=== PATIENT | female | born 1950 | race Caucasian/White ===

== ENCOUNTER 2018-10-03 04:19 | Inpatient (IN) | payer MEDICARE ==
[2018-10-03 04:51] VITALS: BP 154/84
[2018-10-03 06:31] LABS: CHOLESTEROL 205 mg/dL (<200); HDL -HIGH DENSITY LIPOPROTEIN 38 mg/dL (23-92); TRIGLYCERIDES 70 mg/dL (<150)
--- NOTE | 2018-10-04 02:54 | Psychiatric Evaluation ---
DATE OF SERVICE: 10/03/2018 PSYCHIATRIC INITIAL EVALUATION AND MENTAL STATUS EXAM. AGE: 68. SEX: Female. PHYSICIAN: Dr. Grubbs or Dr. Medrano. TYPE OF REPORT: Psychiatric consult. REASON FOR THE CONSULT: Agitation. HISTORY OF PRESENT ILLNESS: The patient is a 68-year-old female who was transferred from [facility] in [place] because of agitation. The patient has history of bipolar disorder as well as Parkinson disease and she was placed on 5150 hold for grave disability. The patient has been actively hallucinating and seeing "big giants." The patient also has not been able to take care of her basic needs and she has not been taking her medications for her both Parkinson's and for her schizoaffective disorder to the point that she has not been able to function. I tried to interview the patient but the patient kept staring at me and at the room aimlessly and appeared to be confused and she kept tapping by her fingers into the Yina chair. The patient also seems to be confused and restless. She also has hand coarse tremors. The patient also was agitated, but no aggressive behavior. PAST PSYCHIATRIC HISTORY: The patient has history of schizoaffective disorder. PAST MEDICAL HISTORY: The patient has history of Parkinson's disease. SOCIAL HISTORY: The patient could not give much information about her social history, but according to the chart, no known alcohol or street drug use. ALLERGIES: No known allergies. MENTAL STATUS EXAMINATION: The patient appears older than her stated age. Anxious. Irritable mood. Preoccupied and kept staring at me and at the room aimlessly. The patient did not answer questions regarding hallucinations or delusions or regarding suicide or homicide. The patient seems to be preoccupied. The patient reported earlier seeing big giants but was not able to elaborate more on that. The patient is alert, but seems to be disoriented to the place, person, time, and situation. Unable to assess her memory at this time because the patient is nonverbal. Also unable to assess her intelligence. Poor concentration and attention span and she was not able to follow any of my instructions. ASSESSMENT: PRIMARY DIAGNOSIS: Schizoaffective disorder, bipolar type, severe, with psychotic features. MEDICAL DIAGNOSIS: Parkinson's disease. TREATMENT PLAN: We will change Seroquel to be given in a dose of 50 mg twice a day instead of 100 mg once a day. Also, we will add Klonopin 0.5 mg twice a day. Also, we will continue to work on her agitation and her irritability and also will try to get more information when more able to talk and when we get more history from other resources. ESTIMATED LENGTH OF STAY: 5-7 days. PATIENT'S STRENGTHS AND WEAKNESSES: The patient's strength is not clear at this time. Weaknesses is her noncompliance with taking her medications and it seems that she has lack of support system. AFTER-DISCHARGE PLANS: The patient might need placement in a senior care if she is not ready in one in [place]. Outpatient treatment and followup will continue as an outpatient. CRITERIA FOR DISCHARGE: Stabilizing psychotropic medications and also has discharge plans. [facility]# [id number]
--- NOTE | 2018-10-05 10:17 | Progress Notes ---
DATE: 10/04/2018 SUBJECTIVE: A 68-year-old female transferred from [facility] in agitation, bipolar, actively hallucinating. On [id number], the patient is not talking to me, whatsoever, just mumbling saying not intelligible things, starring aimlessly, very confused, disoriented. Medications were reviewed. Currently on Klonopin, Ativan, and mirtazapine. The patient is not really a good historian, needing prompting, redirections, selectively mute, delusional, stating that "giants are chasing me" and that is one of the reasons she came to the hospital. PLAN: We will continue to monitor. Continue dosing of Seroquel. JOB# [id number]
--- NOTE | 2018-10-05 14:15 | Diagnostic Imaging Report ---
CHEST X-RAY: AP view INDICATION: Fever COMPARISON: None FINDINGS: There is mild prominence right paratracheal soft tissue density. There is elevation of the right hemidiaphragm. There is no focal consolidation or pleural effusions The heart is normal in size. The aorta is mildly tortuous. Degenerative changes of the spine are noted. There is evidence of calcific tendinitis of the right shoulder. IMPRESSION: No focal consolidation identified Mild prominence right paratracheal soft tissue density which may be due to patient positioning and vascular structures. Lymphadenopathy is less likely. Correlation with old exams would be helpful. If necessary follow-up CT would provide additional detail and assessment. Tortuous aorta.
[2018-10-05 15:10] LABS: HEMATOCRIT 46.8 % (41.0-60); HEMOGLOBIN 15.8 gm/dL (12-16); MEAN CELL VOLUME 93.5 fl (81-100); MEAN CORPUSCULAR HEMOGLOBIN 31.5 pg (27.0-31.0); MEAN CORPUSCULAR HGB CONC 33.7 pg (28.0-36.0); PLATELET COUNT 262 Th/cmm (150-400); RED BLOOD COUNT 5.01 Mil/cmm (3.80-5.20); RED CELL DISTRIBUTION WIDTH 13.2 % (11.5-20.0); WHITE BLOOD COUNT 14.4 Th/cmm (4.8-10.8)
[2018-10-05 15:31] LABS: ALB/GLOB RATIO 1.3 (1.0-1.8); ALBUMIN 4.5 gm/dL (3.7-5.3); ALKALINE PHOSPHATASE 116 U/L (34-104); ANION GAP 15.4 (7.0-16.0); BILIRUBIN,TOTAL 1.4 mg/dL (0.3-1.0); BUN - UREA NITROGEN 53 mg/dL (7-25); CALCIUM SERUM 12.3 mg/dL (8.6-10.3); CARBON DIOXIDE 23.3 mEq/L (21.0-31.0); CHLORIDE 116 mEq/L (98-107); GFR AFRICAN-AMERICAN > 60.0 ml/min (>90); GFR NON AFRICAN-AMERICAN 58.4 ml/min; GLUCOSE 129 mg/dL (70-105); POTASSIUM SERUM 3.7 mEq/L (3.5-5.1); SGOT 40 U/L (13-39); SGPT/ALT < 3 U/L (7-52); SODIUM SERUM 151 mEq/L (136-145); TOTAL PROTEIN,SERUM 7.9 gm/dL (6.0-8.3)
[2018-10-05 16:15] LABS: BAND NEUTROPHILE 0 % (0-10); BASOPHIL 0 % (0-3); EOSINOPHIL 0 % (0-5); LYMPHOCYTE 6 % (20-50); MONOCYTE 6 % (2-10); NEUTROPHILS 88 % (40-80)
--- NOTE | 2018-10-05 17:01 | History & Physical ---
ADMIT DATE: 10/03/2018 INTERNAL MEDICINE HISTORY AND PHYSICAL The patient is ____. REASON FOR CONSULTATION: ____ medical management and clearance. HISTORY OF PRESENT ILLNESS: This is an unfortunate 68-year-old female with history of Parkinson's, hypertension, hyperparathyroidism, ____ history of endometrial cancer, which could be distant; admitted under the service of Dr. Grubbs. The patient was cleared medically from the facility in [place], [place]. The patient is awake, stairs blankly, not verbal, not interactive. PAST MEDICAL HISTORY: As mentioned in the history of present illness. PAST SURGICAL HISTORY: Unknown. ALLERGIES: ARCHIE INHIBITOR, HALDOL, ____ DEPAKOTE. MEDICATIONS: The patient is on amantadine, Sinemet, clonazepam and Seroquel. FAMILY HISTORY: Noncontributory. SOCIAL HISTORY: Apparently from [facility]. REVIEW OF SYSTEMS: This is limited secondary to the patient's current mental state. We will try to obtain more detailed review of system later date by talking to family members, Brit Castillo, who is her sister at [phone]. We will also try to get information from the nursing staff at ____ facility in [place] at [phone]. PHYSICAL EXAMINATION: VITAL SIGNS: Blood pressure 129/60, respirations 20, pulse 99, temperature 98.6. GENERAL: Elderly female, appears her stated age, appears chronically ill. HEENT: Bilateral temporal wasting. NECK: Supple. LUNGS: Equal breath sounds, few rhonchi. HEART: Regular rate and rhythm with systolic ejection murmur. ABDOMEN: Soft, globular, nontender. EXTREMITIES: Positive excoriation ____ extremity. NEUROLOGIC: Positive for resting tremor. LABORATORY DATA: ____. The rest of the labs are pending. ASSESSMENT AND PLAN: 1. Parkinson's disorder. 2. Hypertension. 3. Hyperparathyroidism. 4. History of endometrial cancer. 5. Hypercholesterolemia. PLAN: Poor p.o. intake. We will add Ensure. We will do calorie count. We will check UA and C and S and chest x-ray if not done. We are looking for results of the lab test done from outside hospital. We will continue monitor the patient closely. JOB# [id number]
[2018-10-06 06:01] LABS: URINE SOURCE CATH
[2018-10-06 06:08] LABS: URINE BILIRUBIN SMALL (NEGATIVE); URINE BLOOD LARGE (NEGATIVE); URINE GLUCOSE (UA) NEGATIVE (NEGATIVE); URINE KETONE TRACE mg/dL (NEGATIVE); URINE LEUKOCYTE ESTERASE TRACE (NEGATIVE); URINE MICROSCOPIC INDICATED? YES; URINE NITRATE NEGATIVE (NEGATIVE); URINE PROTEIN 100 mg/dL (NEGATIVE); URINE UROBILINOGEN 0.2 E.U./dL (0.2 - 1.0)
[2018-10-06 06:11] LABS: URINE CLARITY HAZY (CLEAR); URINE COLOR BROWN
[2018-10-06 06:19] LABS: URINE RBC 25-50 /hpf (0-5)
[2018-10-06 06:20] LABS: URINE BACTERIA FEW /hpf (NONE SEEN); URINE EPITHELIAL CELLS OCCASIONAL /lpf (FEW)
--- NOTE | 2018-10-06 08:50 | Progress Notes ---
DATE: 10/05/2018 SUBJECTIVE: The patient slept about 7 hours, started shaking when I see her, preoccupied, mumbling, cannot understand really anything that she is saying, very low volume of speech. Currently on low dose Remeron, low dose Seroquel, also Sinemet, on low dose Klonopin. The patient remains somewhat impulsive, unpredictable, repetitive, ongoing concerns that she may not be able to be cared for the level of care, concerns of delusions. She has been making statements that "giants" were chasing her and was psychotic appearing. PLAN: We will continue to monitor. Given the extent and severity of her ongoing symptoms, she is not safe for discharge. [facility]# [id number]
--- NOTE | 2018-10-06 12:00 | Diagnostic Imaging Report ---
Ultrasound bladder History: Hematuria Comparison: None Findings: Underdistended urinary bladder is noted. No definite urinary bladder wall thickening based on the limited images provided. No other focal abnormal identified. IMPRESSION: Underdistended urinary bladder limiting its evaluation. No focal abnormalities identified.
--- NOTE | 2018-10-06 14:15 | Internal Medicine Prog Note ---
Internal Medicine Subjective - Subjective Patient seen and examined:: with staff, chart reviewed Patient is:: awake, non-verbal, non-interactive Per staff patient has:: no adverse event, no episodes of fall, poor oral intake , tolerating meds Internal Medicine Objective - Results Result Diagrams: 10/05/18 15:00 10/05/18 15:00 Recent Labs: Laboratory Last Values WBC 14.4 Th/cmm (4.8-10.8) H 10/05/18 15:00 RBC 5.01 Mil/cmm (3.80-5.20) 10/05/18 15:00 Hgb 15.8 gm/dL (12-16) 10/05/18 15:00 Hct 46.8 % (41.0-60) 10/05/18 15:00 MCV 93.5 fl (81-100) 10/05/18 15:00 MCH 31.5 pg (27.0-31.0) H 10/05/18 15:00 MCHC Differential 33.7 pg (28.0-36.0) 10/05/18 15:00 RDW 13.2 % (11.5-20.0) 10/05/18 15:00 Plt Count 262 Th/cmm (150-400) 10/05/18 15:00 MPV 8.2 fl 10/05/18 15:00 Add Manual Diff YES 10/05/18 15:00 Band Neutrophils % 0 % (0-10) 10/05/18 15:00 Neutrophils (Manual) 88 % (40-80) H 10/05/18 15:00 Lymphocytes 6 % (20-50) L 10/05/18 15:00 Monocytes 6 % (2-10) 10/05/18 15:00 Eosinophils 0 % (0-5) 10/05/18 15:00 Basophils 0 % (0-3) 10/05/18 15:00 Sodium 151 mEq/L (136-145) H 10/05/18 15:00 Potassium 3.7 mEq/L (3.5-5.1) 10/05/18 15:00 Chloride 116 mEq/L (98-107) H 10/05/18 15:00 Carbon Dioxide 23.3 mEq/L (21.0-31.0) 10/05/18 15:00 Anion Gap 15.4 (7.0-16.0) 10/05/18 15:00 BUN 53 mg/dL (7-25) H 10/05/18 15:00 Creatinine 1.0 mg/dL (0.6-1.2) 10/05/18 15:00 Est GFR ( Amer) > 60.0 ml/min (>90) 10/05/18 15:00 Est GFR (Non-Af Amer) 58.4 ml/min 10/05/18 15:00 BUN/Creatinine Ratio 53.0 10/05/18 15:00 Glucose 129 mg/dL (70-105) H 10/05/18 15:00 Calcium 12.3 mg/dL (8.6-10.3) H 10/05/18 15:00 Total Bilirubin 1.4 mg/dL (0.3-1.0) H 10/05/18 15:00 AST 40 U/L (13-39) H 10/05/18 15:00 ALT < 3 U/L (7-52) L 10/05/18 15:00 Alkaline Phosphatase 116 U/L (34-104) H 10/05/18 15:00 Total Protein 7.9 gm/dL (6.0-8.3) 10/05/18 15:00 Albumin 4.5 gm/dL (3.7-5.3) 10/05/18 15:00 Globulin 3.4 gm/dL 10/05/18 15:00 Albumin/Globulin Ratio 1.3 (1.0-1.8) 10/05/18 15:00 Triglycerides 70 mg/dL (<150) 10/03/18 05:50 Cholesterol 205 mg/dL (<200) H 10/03/18 05:50 LDL Cholesterol Direct 163 mg/dL (75-193) 10/03/18 05:50 HDL Cholesterol 38 mg/dL (23-92) 10/03/18 05:50 TSH 0.64 uIU/ml (0.34-5.60) 10/05/18 15:00 Urine Source CATH 10/06/18 05:50 Urine Color BROWN 10/06/18 05:50 Urine Clarity HAZY (CLEAR) 10/06/18 05:50 Urine pH 6.0 (4.6 - 8.0) 10/06/18 05:50 Ur Specific [place] >= 1.030 (1.005-1.030) 10/06/18 05:50 Urine Protein 100 mg/dL (NEGATIVE) H 10/06/18 05:50 Urine Glucose (UA) NEGATIVE mg/dL (NEGATIVE) 10/06/18 05:50 Urine Ketones TRACE mg/dL (NEGATIVE) 10/06/18 05:50 Urine Blood LARGE (NEGATIVE) H 10/06/18 05:50 Urine Nitrate NEGATIVE (NEGATIVE) 10/06/18 05:50 Urine Bilirubin SMALL (NEGATIVE) H 10/06/18 05:50 Urine Urobilinogen 0.2 E.U./dL (0.2 - 1.0) 10/06/18 05:50 Ur Leukocyte Esterase TRACE (NEGATIVE) H 10/06/18 05:50 Urine RBC 25-50 /hpf (0-5) H 10/06/18 05:50 Urine WBC 6-10 /hpf (0-5) H 10/06/18 05:50 Ur Epithelial Cells OCCASIONAL /lpf (FEW) 10/06/18 05:50 Urine Bacteria FEW /hpf (NONE SEEN) 10/06/18 05:50 - Physical Exam Vitals and I&O: Vital Signs Temp 100 F 10/06/18 06:26 Pulse 108 10/06/18 06:26 Resp 19 10/06/18 06:26 BP 136/74 10/06/18 06:26 Pulse Ox 92 10/06/18 06:26 Intake & Output 10/05/18 10/06/18 10/06/18 18:59 06:59 18:59 Intake Total 120 Balance 120 Intake: Oral 120 Other: # Voids 3 # Bowel Movements 0 Active Medications: Current Medications Amantadine HCl (Symmetrel) 100 mg PO BID [facility] Stop: 12/03/18 16:59 Last Admin: 10/06/18 09:47 Dose: 100 mg Carbidopa/Levodopa (Sinemet 25mg-100 Mg) 2 tab PO TID [facility] Stop: 12/02/18 08:59 Last Admin: 10/06/18 09:47 Dose: 2 tab Clonazepam (Klonopin) 0.5 mg PO BID [facility]; Protocol Stop: 12/02/18 08:59 Last Admin: 10/06/18 09:48 Dose: 0.5 mg Docusate Sodium (Colace) 250 mg PO DAILY [facility] Stop: 12/02/18 08:59 Last Admin: 10/06/18 09:48 Dose: 250 mg Lorazepam (Ativan) 0.5 mg PO Q4HR PRN; Protocol PRN Reason: Anxiety Stop: 12/02/18 05:05 Last Admin: 10/04/18 21:30 Dose: 0.5 mg Megestrol Acetate (Megace) 400 mg PO BID [facility]; Protocol Stop: 12/04/18 16:59 Last Admin: 10/06/18 09:48 Dose: 400 mg Mirtazapine (Remeron) 15 mg PO HS [facility]; Protocol Stop: 12/02/18 20:59 Last Admin: 10/05/18 22:00 Dose: Not Given Quetiapine Fumarate (Seroquel) 50 mg PO BID [facility]; Protocol Stop: 12/02/18 08:59 Last Admin: 10/06/18 09:48 Dose: 50 mg Trimethoprim/Sulfamethoxazole (Bactrim Ds) 1 tab PO BID [facility] Stop: 10/09/18 16:59 General: demented HEENT: NC/AT, PERRLA, EOMI Neck: Supple, No JVD Lungs: CTAB Cardiovascular: RRR, Normal S1, Normal S2, with murmur Abdomen: soft, thin, non-distended, positive bowel sound Extremities: excoriation, contracture Internal Medicine Assmt/Plan - Assessment Assessment: ASSESSMENT AND PLAN: 1. Parkinson's disorder. 2. Hypertension. 3. Hyperparathyroidism. 4. History of endometrial cancer. 5. Hypercholesterolemia. uti hematuria - Plan Plan: PLAN: Poor p.o. intake. We will add Ensure. We will do calorie count. We will check UA and C and S and chest x-ray if not done. We are looking for results of the lab test done from outside hospital. We will continue monitor the patient closely. start on bactrim
[2018-10-06] MEDS: Sulfamethoxazole/TMP 800/160mg Tab PO SCH (16:25)
--- NOTE | 2018-10-07 03:24 | Progress Notes ---
DATE: 10/06/2018 SUBJECTIVE: The patient is in the hospital, remains impulsive, highly unpredictable, just stares blankly, not saying anything, also having some medical problems apparently with blood in the urine, staff pending an ultrasound, difficult to assess at this time. The patient just stares blankly, possibly selectively mute. Medications were noted. We will continue to monitor, try to increase collateral. It is unclear where the patient will go when she leaves the hospital. It seems certain that she cannot take care of her own basic needs without some structure or supervision. JOB# [id number]
[2018-10-07] MEDS: Sulfamethoxazole/TMP 800/160mg Tab PO SCH ×2 (08:58→17:19)
--- NOTE | 2018-10-07 12:06 | Internal Medicine Prog Note ---
Internal Medicine Subjective - Subjective Patient seen and examined:: with staff, chart reviewed Patient is:: awake, non-verbal, non-interactive Per staff patient has:: no adverse event, no episodes of fall, poor oral intake , tolerating meds Internal Medicine Objective - Results Result Diagrams: 10/05/18 15:00 10/05/18 15:00 Recent Labs: Laboratory Last Values WBC 14.4 Th/cmm (4.8-10.8) H 10/05/18 15:00 RBC 5.01 Mil/cmm (3.80-5.20) 10/05/18 15:00 Hgb 15.8 gm/dL (12-16) 10/05/18 15:00 Hct 46.8 % (41.0-60) 10/05/18 15:00 MCV 93.5 fl (81-100) 10/05/18 15:00 MCH 31.5 pg (27.0-31.0) H 10/05/18 15:00 MCHC Differential 33.7 pg (28.0-36.0) 10/05/18 15:00 RDW 13.2 % (11.5-20.0) 10/05/18 15:00 Plt Count 262 Th/cmm (150-400) 10/05/18 15:00 MPV 8.2 fl 10/05/18 15:00 Add Manual Diff YES 10/05/18 15:00 Band Neutrophils % 0 % (0-10) 10/05/18 15:00 Neutrophils (Manual) 88 % (40-80) H 10/05/18 15:00 Lymphocytes 6 % (20-50) L 10/05/18 15:00 Monocytes 6 % (2-10) 10/05/18 15:00 Eosinophils 0 % (0-5) 10/05/18 15:00 Basophils 0 % (0-3) 10/05/18 15:00 Sodium 151 mEq/L (136-145) H 10/05/18 15:00 Potassium 3.7 mEq/L (3.5-5.1) 10/05/18 15:00 Chloride 116 mEq/L (98-107) H 10/05/18 15:00 Carbon Dioxide 23.3 mEq/L (21.0-31.0) 10/05/18 15:00 Anion Gap 15.4 (7.0-16.0) 10/05/18 15:00 BUN 53 mg/dL (7-25) H 10/05/18 15:00 Creatinine 1.0 mg/dL (0.6-1.2) 10/05/18 15:00 Est GFR ( Amer) > 60.0 ml/min (>90) 10/05/18 15:00 Est GFR (Non-Af Amer) 58.4 ml/min 10/05/18 15:00 BUN/Creatinine Ratio 53.0 10/05/18 15:00 Glucose 129 mg/dL (70-105) H 10/05/18 15:00 Calcium 12.3 mg/dL (8.6-10.3) H 10/05/18 15:00 Total Bilirubin 1.4 mg/dL (0.3-1.0) H 10/05/18 15:00 AST 40 U/L (13-39) H 10/05/18 15:00 ALT < 3 U/L (7-52) L 10/05/18 15:00 Alkaline Phosphatase 116 U/L (34-104) H 10/05/18 15:00 Total Protein 7.9 gm/dL (6.0-8.3) 10/05/18 15:00 Albumin 4.5 gm/dL (3.7-5.3) 10/05/18 15:00 Globulin 3.4 gm/dL 10/05/18 15:00 Albumin/Globulin Ratio 1.3 (1.0-1.8) 10/05/18 15:00 Triglycerides 70 mg/dL (<150) 10/03/18 05:50 Cholesterol 205 mg/dL (<200) H 10/03/18 05:50 LDL Cholesterol Direct 163 mg/dL (75-193) 10/03/18 05:50 HDL Cholesterol 38 mg/dL (23-92) 10/03/18 05:50 TSH 0.64 uIU/ml (0.34-5.60) 10/05/18 15:00 Urine Source CATH 10/06/18 05:50 Urine Color BROWN 10/06/18 05:50 Urine Clarity HAZY (CLEAR) 10/06/18 05:50 Urine pH 6.0 (4.6 - 8.0) 10/06/18 05:50 Ur Specific [place] >= 1.030 (1.005-1.030) 10/06/18 05:50 Urine Protein 100 mg/dL (NEGATIVE) H 10/06/18 05:50 Urine Glucose (UA) NEGATIVE mg/dL (NEGATIVE) 10/06/18 05:50 Urine Ketones TRACE mg/dL (NEGATIVE) 10/06/18 05:50 Urine Blood LARGE (NEGATIVE) H 10/06/18 05:50 Urine Nitrate NEGATIVE (NEGATIVE) 10/06/18 05:50 Urine Bilirubin SMALL (NEGATIVE) H 10/06/18 05:50 Urine Urobilinogen 0.2 E.U./dL (0.2 - 1.0) 10/06/18 05:50 Ur Leukocyte Esterase TRACE (NEGATIVE) H 10/06/18 05:50 Urine RBC 25-50 /hpf (0-5) H 10/06/18 05:50 Urine WBC 6-10 /hpf (0-5) H 10/06/18 05:50 Ur Epithelial Cells OCCASIONAL /lpf (FEW) 10/06/18 05:50 Urine Bacteria FEW /hpf (NONE SEEN) 10/06/18 05:50 - Physical Exam Vitals and I&O: Vital Signs Temp 99.5 F 10/07/18 06:14 Pulse 80 10/07/18 06:14 Resp 20 10/07/18 06:14 BP 129/85 10/07/18 06:14 Pulse Ox 94 10/07/18 06:14 Intake & Output 10/06/18 10/07/18 10/07/18 18:59 06:59 18:59 Intake Total 120 Balance 120 Intake: Oral 120 Other: # Voids 1 3 # Bowel Movements 0 0 Active Medications: Current Medications Amantadine HCl (Symmetrel) 100 mg PO BID [facility] Stop: 12/03/18 16:59 Last Admin: 10/07/18 08:58 Dose: 100 mg Carbidopa/Levodopa (Sinemet 25mg-100 Mg) 2 tab PO TID [facility] Stop: 12/02/18 08:59 Last Admin: 10/07/18 08:59 Dose: 2 tab Clonazepam (Klonopin) 0.5 mg PO BID [facility]; Protocol Stop: 12/02/18 08:59 Last Admin: 10/07/18 08:58 Dose: 0.5 mg Docusate Sodium (Colace) 250 mg PO DAILY [facility] Stop: 12/02/18 08:59 Last Admin: 10/07/18 08:58 Dose: 250 mg Lorazepam (Ativan) 0.5 mg PO Q4HR PRN; Protocol PRN Reason: Anxiety Stop: 12/02/18 05:05 Last Admin: 10/04/18 21:30 Dose: 0.5 mg Megestrol Acetate (Megace) 400 mg PO BID [facility]; Protocol Stop: 12/04/18 16:59 Last Admin: 10/07/18 08:57 Dose: 400 mg Mirtazapine (Remeron) 15 mg PO HS [facility]; Protocol Stop: 12/02/18 20:59 Last Admin: 10/06/18 21:01 Dose: 15 mg Quetiapine Fumarate (Seroquel) 50 mg PO BID [facility]; Protocol Stop: 12/02/18 08:59 Last Admin: 10/07/18 08:59 Dose: 50 mg Trimethoprim/Sulfamethoxazole (Bactrim Ds) 1 tab PO BID [facility] Stop: 10/09/18 16:59 Last Admin: 10/07/18 08:58 Dose: 1 tab General: demented HEENT: NC/AT, PERRLA, EOMI Neck: Supple, No JVD Lungs: CTAB Cardiovascular: RRR, Normal S1, Normal S2, with murmur Abdomen: soft, thin, non-distended, positive bowel sound Extremities: excoriation, contracture Internal Medicine Assmt/Plan - Assessment Assessment: ASSESSMENT AND PLAN: 1. Parkinson's disorder. 2. Hypertension. 3. Hyperparathyroidism. 4. History of endometrial cancer. 5. Hypercholesterolemia. uti hematuria - Plan Plan: PLAN: Poor p.o. intake. We will add Ensure. We will do calorie count. We will check UA and C and S and chest x-ray if not done. We are looking for results of the lab test done from outside hospital. We will continue monitor the patient closely. start on bactrim Nutritional Asmnt/Malnutr-PDOC - Dietary Evaluation Malnutrition Findings (Please click <Entered> for more info): Nutritional Asmnt/Malnutrition Start: 10/07/18 11: 25 Text: Status: Complete Freq: Protocol: Document 10/07/18 11:26 KATHY (Rec: 10/07/18 11:31 KATHY [email or web address]) Nutritional Asmnt/Malnutrition Patient General Information Nutritional Screening Moderate Risk Diagnosis PSYCHOSIS Pertinent Medical Hx/Surgical Hx PARKINSONS, HTN, HYPERTHYROIDISM, ENDOMETRIAL CANCER Subjective Information PT IS A 68 YEAR OLD FEMALE FROM NURSING FACILITY ADMITTED ON 10/03 D/T PSYCHOSIS. ENSURE ENLIVE TID ADDED TO PTS DIET PER MD ORDER (10/05). PT IS ON MEGACE, CURRENTLY PO INTAKE IS AN ESTIMATED 50% X3 DAYS. NOTED WILLAM TEMPORAL WASTING ON H&P REPORT. HT: 55 WT: 185 LB (84.09 KG) ABW: 140 LB (63.64 KG) BMI: 30.85 (OBESE) GI: WNL, SOFT, NON-TENDER BM: NOT NOTED I/O: 120/NOT NOTED SKIN: WNL, INTACT JAMIE: 17 DIET ORDER: MECHANICAL SOFT, NA2GM ESTIMATED ENERGY NEEDS: ( GERIATRIC, ABW) 8139-6138 KCALS (25-30 KCALS/ KG) 63-76 G PRO (1.0-1.2 G/KG) 0847-4931 ML (25-30 ML/KG) PT PO INTAKE: ESTIMATED 50% MEALS X 3 DAYS, PER MEAL/ NUTRITION ACTIVITY RECORD. DIETARY IS CURRENTLY PROVIDING AN ESTIMATED 2300 KCALS AND 106 GM PRO. PER PT PO INTAKE, THIS IS PROVIDING AN ESTIMATED 1150 KCALS AND 53 GM PRO, TO MEET 72% KCAL AND 84% PRO NEEDS. Current Diet Order/ Nutrition Support MECHANICAL SOFT, NA2GM Pertinent Medications COLACE, MEGACE Pertinent Labs 10/05: NA 151, BUN/CR 53/1.0, GLUCOSE 129, CA 12.3, T BILI 1 .4, AST 40, ALT <3, ALH PHOS 116 Nutritional Hx/Data Height 1.65 m Height (Calculated Centimeters) 165.1 Current Weight (lbs) 83.915 kg Weight (Calculated Kilograms) 83.9 Weight (Calculated Grams) 99441.6 [place] Body Weight 125 % [place] Body Weight 148 Body Mass Index (BMI) 30.7 Weight Status Obese GI Symptoms GI Symptoms None Last BM NOT NOTED Skin Integrity/Comment: WNL, INTACT JAMIE: 17 Current %PO Fair (50-74%) Estimated Nutritional Goals BEE in Kcals: Adj wt of IBW Calories/Kcals/Kg 25-30 Kcals Calculated 6560-3712 Protein: Adj wt of IBW Protein g/k.0-1.2 Protein Calculated 63-76 Fluid: ml 1440-0026 ML (25-30 ML/KG) Nutritional Problem 1. Problem Problem ALTERED NUTRITION RELATED LABS Etiology R/T PATHOPHYSIOLOGICAL CAUSES Signs/Symptoms: AEB GLUCOSE 129, NA 151, BUN/ CR 53/1.0, CA 12.3 Malnutrition Related to Morbid Obesity Malnutrition related to morbid obesity No Intervention/Recommendation Comments 1. CONTINUE WITH MECHANICAL SOFT, NA2GM DIET ORDERED. 2. ADD NUTRITIONAL SUPPLEMENT TID (COMPLETED). Expected Outcomes/Goals Expected Outcomes/Goals 1. PO INTAKE TO MEET 75% OF NUTRITIONAL NEEDS. 2. NUTRITION RELATED LABS TO TREND WNL IN 3-5 DAYS. 3. MONITOR PO INTAKE, WT, NUTRITION RELATED LABS AND SKIN INTEGRITY. 4. F/U MODERATE RISK IN 3-5 DAYS, 10/10-10/12
[2018-10-08] MEDS: Sulfamethoxazole/TMP 800/160mg Tab PO SCH ×2 (08:56→18:00)
--- NOTE | 2018-10-08 09:53 | Progress Notes ---
DATE: 10/07/2018 SUBJECTIVE: The patient in the hospital, was transferred from [facility] due to agitation and was apparently saying "that I am inactively hallucinating". The patient stares blankly, impulsive, ongoing concerns about impulsivity, somewhat cooperative this morning, but unpredictable, bleeding giants are chasing her, ongoing concerns about impulse control, behavioral disturbances. She is redirectable, anxious, mostly keeps to herself, very isolative, withdrawn. Medications were reviewed. Currently on dosing of Seroquel, currently pending [employer] consultation to work on the safe discharge plan. JOB# [id number]
--- NOTE | 2018-10-08 12:33 | Internal Medicine Prog Note ---
Internal Medicine Subjective - Subjective Patient seen and examined:: with staff, chart reviewed Patient is:: awake, non-verbal, non-interactive Per staff patient has:: no adverse event, no episodes of fall, poor oral intake , tolerating meds Internal Medicine Objective - Results Result Diagrams: 10/05/18 15:00 10/05/18 15:00 Recent Labs: Laboratory Last Values WBC 14.4 Th/cmm (4.8-10.8) H 10/05/18 15:00 RBC 5.01 Mil/cmm (3.80-5.20) 10/05/18 15:00 Hgb 15.8 gm/dL (12-16) 10/05/18 15:00 Hct 46.8 % (41.0-60) 10/05/18 15:00 MCV 93.5 fl (81-100) 10/05/18 15:00 MCH 31.5 pg (27.0-31.0) H 10/05/18 15:00 MCHC Differential 33.7 pg (28.0-36.0) 10/05/18 15:00 RDW 13.2 % (11.5-20.0) 10/05/18 15:00 Plt Count 262 Th/cmm (150-400) 10/05/18 15:00 MPV 8.2 fl 10/05/18 15:00 Add Manual Diff YES 10/05/18 15:00 Band Neutrophils % 0 % (0-10) 10/05/18 15:00 Neutrophils (Manual) 88 % (40-80) H 10/05/18 15:00 Lymphocytes 6 % (20-50) L 10/05/18 15:00 Monocytes 6 % (2-10) 10/05/18 15:00 Eosinophils 0 % (0-5) 10/05/18 15:00 Basophils 0 % (0-3) 10/05/18 15:00 Sodium 151 mEq/L (136-145) H 10/05/18 15:00 Potassium 3.7 mEq/L (3.5-5.1) 10/05/18 15:00 Chloride 116 mEq/L (98-107) H 10/05/18 15:00 Carbon Dioxide 23.3 mEq/L (21.0-31.0) 10/05/18 15:00 Anion Gap 15.4 (7.0-16.0) 10/05/18 15:00 BUN 53 mg/dL (7-25) H 10/05/18 15:00 Creatinine 1.0 mg/dL (0.6-1.2) 10/05/18 15:00 Est GFR ( Amer) > 60.0 ml/min (>90) 10/05/18 15:00 Est GFR (Non-Af Amer) 58.4 ml/min 10/05/18 15:00 BUN/Creatinine Ratio 53.0 10/05/18 15:00 Glucose 129 mg/dL (70-105) H 10/05/18 15:00 Calcium 12.3 mg/dL (8.6-10.3) H 10/05/18 15:00 Total Bilirubin 1.4 mg/dL (0.3-1.0) H 10/05/18 15:00 AST 40 U/L (13-39) H 10/05/18 15:00 ALT < 3 U/L (7-52) L 10/05/18 15:00 Alkaline Phosphatase 116 U/L (34-104) H 10/05/18 15:00 Total Protein 7.9 gm/dL (6.0-8.3) 10/05/18 15:00 Albumin 4.5 gm/dL (3.7-5.3) 10/05/18 15:00 Globulin 3.4 gm/dL 10/05/18 15:00 Albumin/Globulin Ratio 1.3 (1.0-1.8) 10/05/18 15:00 Triglycerides 70 mg/dL (<150) 10/03/18 05:50 Cholesterol 205 mg/dL (<200) H 10/03/18 05:50 LDL Cholesterol Direct 163 mg/dL (75-193) 10/03/18 05:50 HDL Cholesterol 38 mg/dL (23-92) 10/03/18 05:50 TSH 0.64 uIU/ml (0.34-5.60) 10/05/18 15:00 Urine Source CATH 10/06/18 05:50 Urine Color BROWN 10/06/18 05:50 Urine Clarity HAZY (CLEAR) 10/06/18 05:50 Urine pH 6.0 (4.6 - 8.0) 10/06/18 05:50 Ur Specific [place] >= 1.030 (1.005-1.030) 10/06/18 05:50 Urine Protein 100 mg/dL (NEGATIVE) H 10/06/18 05:50 Urine Glucose (UA) NEGATIVE mg/dL (NEGATIVE) 10/06/18 05:50 Urine Ketones TRACE mg/dL (NEGATIVE) 10/06/18 05:50 Urine Blood LARGE (NEGATIVE) H 10/06/18 05:50 Urine Nitrate NEGATIVE (NEGATIVE) 10/06/18 05:50 Urine Bilirubin SMALL (NEGATIVE) H 10/06/18 05:50 Urine Urobilinogen 0.2 E.U./dL (0.2 - 1.0) 10/06/18 05:50 Ur Leukocyte Esterase TRACE (NEGATIVE) H 10/06/18 05:50 Urine RBC 25-50 /hpf (0-5) H 10/06/18 05:50 Urine WBC 6-10 /hpf (0-5) H 10/06/18 05:50 Ur Epithelial Cells OCCASIONAL /lpf (FEW) 10/06/18 05:50 Urine Bacteria FEW /hpf (NONE SEEN) 10/06/18 05:50 - Physical Exam Vitals and I&O: Vital Signs Temp 98.6 F 10/08/18 05:58 Pulse 77 10/08/18 05:58 Resp 18 10/08/18 05:58 BP 133/85 10/08/18 05:58 Pulse Ox 97 10/08/18 05:58 Intake & Output 10/07/18 10/08/18 10/08/18 18:59 06:59 18:59 Intake Total 1050 240 Balance 1050 240 Intake: Oral 1050 240 Other: # Voids 2 # Bowel Movements 1 Active Medications: Current Medications Amantadine HCl (Symmetrel) 100 mg PO BID [facility] Stop: 12/03/18 16:59 Last Admin: 10/08/18 08:55 Dose: 100 mg Carbidopa/Levodopa (Sinemet 25mg-100 Mg) 2 tab PO TID KATYA Stop: 12/02/18 08:59 Last Admin: 10/08/18 08:56 Dose: 2 tab Clonazepam (Klonopin) 0.5 mg PO BID KATYA; Protocol Stop: 12/02/18 08:59 Last Admin: 10/08/18 08:56 Dose: 0.5 mg Docusate Sodium (Colace) 250 mg PO DAILY KATYA Stop: 12/02/18 08:59 Last Admin: 10/08/18 08:56 Dose: 250 mg Lorazepam (Ativan) 0.5 mg PO Q4HR PRN; Protocol PRN Reason: Anxiety Stop: 12/02/18 05:05 Last Admin: 10/04/18 21:30 Dose: 0.5 mg Megestrol Acetate (Megace) 400 mg PO BID KATYA; Protocol Stop: 12/04/18 16:59 Last Admin: 10/08/18 08:56 Dose: 400 mg Mirtazapine (Remeron) 15 mg PO HS KATYA; Protocol Stop: 12/02/18 20:59 Last Admin: 10/07/18 20:38 Dose: 15 mg Quetiapine Fumarate (Seroquel) 50 mg PO BID KATYA; Protocol Stop: 12/02/18 08:59 Last Admin: 10/08/18 08:56 Dose: 50 mg Trimethoprim/Sulfamethoxazole (Bactrim Ds) 1 tab PO BID KATYA Stop: 10/09/18 16:59 Last Admin: 10/08/18 08:56 Dose: 1 tab General: demented HEENT: NC/AT, PERRLA, EOMI Neck: Supple, No JVD Lungs: CTAB Cardiovascular: RRR, Normal S1, Normal S2, with murmur Abdomen: soft, thin, non-distended, positive bowel sound Extremities: excoriation, contracture Internal Medicine Assmt/Plan - Assessment Assessment: ASSESSMENT AND PLAN: 1. Parkinson's disorder. 2. Hypertension. 3. Hyperparathyroidism. 4. History of endometrial cancer. 5. Hypercholesterolemia. uti hematuria - Plan Plan: PLAN: Poor p.o. intake. We will add Ensure. We will do calorie count. We will check UA and C and S and chest x-ray if not done. We are looking for results of the lab test done from outside hospital. We will continue monitor the patient closely. start on bactrim Nutritional Asmnt/Malnutr-PDOC - Dietary Evaluation Malnutrition Findings (Please click <Entered> for more info): Nutritional Asmnt/Malnutrition Start: 10/07/18 11: 25 Text: Status: Complete Freq: Protocol: Document 10/07/18 11:26 KATHY (Rec: 10/07/18 11:31 [email or web address]) Nutritional Asmnt/Malnutrition Patient General Information Nutritional Screening Moderate Risk Diagnosis PSYCHOSIS Pertinent Medical Hx/Surgical Hx PARKINSONS, HTN, HYPERTHYROIDISM, ENDOMETRIAL CANCER Subjective Information PT IS A 68 YEAR OLD FEMALE FROM NURSING FACILITY ADMITTED ON 10/03 D/T PSYCHOSIS. ENSURE ENLIVE TID ADDED TO PTS DIET PER MD ORDER (10/05). PT IS ON MEGACE, CURRENTLY PO INTAKE IS AN ESTIMATED 50% X3 DAYS. NOTED WILLAM TEMPORAL WASTING ON H&P REPORT. HT: 55 WT: 185 LB (84.09 KG) ABW: 140 LB (63.64 KG) BMI: 30.85 (OBESE) GI: WNL, SOFT, NON-TENDER BM: NOT NOTED I/O: 120/NOT NOTED SKIN: WNL, INTACT JAMIE: 17 DIET ORDER: MECHANICAL SOFT, NA2GM ESTIMATED ENERGY NEEDS: ( GERIATRIC, ABW) 8067-9079 KCALS (25-30 KCALS/ KG) 63-76 G PRO (1.0-1.2 G/KG) 7278-5435 ML (25-30 ML/KG) PT PO INTAKE: ESTIMATED 50% MEALS X 3 DAYS, PER MEAL/ NUTRITION ACTIVITY RECORD. DIETARY IS CURRENTLY PROVIDING AN ESTIMATED 2300 KCALS AND 106 GM PRO. PER PT PO INTAKE, THIS IS PROVIDING AN ESTIMATED 1150 KCALS AND 53 GM PRO, TO MEET 72% KCAL AND 84% PRO NEEDS. Current Diet Order/ Nutrition Support MECHANICAL SOFT, NA2GM Pertinent Medications COLACE, MEGACE Pertinent Labs 10/05: NA 151, BUN/CR 53/1.0, GLUCOSE 129, CA 12.3, T BILI 1 .4, AST 40, ALT <3, ALH PHOS 116 Nutritional Hx/Data Height 1.65 m Height (Calculated Centimeters) 165.1 Current Weight (lbs) 83.915 kg Weight (Calculated Kilograms) 83.9 Weight (Calculated Grams) 81137.6 [place] Body Weight 125 % [place] Body Weight 148 Body Mass Index (BMI) 30.7 Weight Status Obese GI Symptoms GI Symptoms None Last BM NOT NOTED Skin Integrity/Comment: WNL, INTACT JAMIE: 17 Current %PO Fair (50-74%) Estimated Nutritional Goals BEE in Kcals: Adj wt of IBW Calories/Kcals/Kg 25-30 Kcals Calculated 0865-6420 Protein: Adj wt of IBW Protein g/k.0-1.2 Protein Calculated 63-76 Fluid: ml 6349-7415 ML (25-30 ML/KG) Nutritional Problem 1. Problem Problem ALTERED NUTRITION RELATED LABS Etiology R/T PATHOPHYSIOLOGICAL CAUSES Signs/Symptoms: AEB GLUCOSE 129, NA 151, BUN/ CR 53/1.0, CA 12.3 Malnutrition Related to Morbid Obesity Malnutrition related to morbid obesity No Intervention/Recommendation Comments 1. CONTINUE WITH MECHANICAL SOFT, NA2GM DIET ORDERED. 2. ADD NUTRITIONAL SUPPLEMENT TID (COMPLETED). Expected Outcomes/Goals Expected Outcomes/Goals 1. PO INTAKE TO MEET 75% OF NUTRITIONAL NEEDS. 2. NUTRITION RELATED LABS TO TREND WNL IN 3-5 DAYS. 3. MONITOR PO INTAKE, WT, NUTRITION RELATED LABS AND SKIN INTEGRITY. 4. F/U MODERATE RISK IN 3-5 DAYS, 10/10-10/12
--- NOTE | 2018-10-08 23:11 | Progress Notes ---
DATE: 10/08/2018 SUBJECTIVE: The patient in the hospital somewhat lethargic. On exam had a UTI, being treated for the UTI. The patient seems calmer. No active hallucinations, somewhat impulsive, unpredictable, but seems to be doing better. No outbursts. No visual disturbances. Staff noting that she is very confused, more amenable to treatment. Social Service is working on her placement, nothing confirmed right now. We will continue to monitor. The patient is gravely disabled, psychotic symptoms dissipating, delirium, better controlled. Unable to take care of her basic needs. We are trying to establish a safe discharge plan. JOB# [id number]
[2018-10-09] MEDS: Sulfamethoxazole/TMP 800/160mg Tab PO SCH (09:18)
--- NOTE | 2018-10-09 11:55 | Internal Medicine Prog Note ---
Internal Medicine Subjective - Subjective Service Date: 10/09/18 Patient is:: awake, non-verbal, non-interactive Per staff patient has:: no adverse event, no episodes of fall, poor oral intake , tolerating meds Internal Medicine Objective - Results Result Diagrams: 10/05/18 15:00 10/05/18 15:00 Recent Labs: Laboratory Last Values WBC 14.4 Th/cmm (4.8-10.8) H 10/05/18 15:00 RBC 5.01 Mil/cmm (3.80-5.20) 10/05/18 15:00 Hgb 15.8 gm/dL (12-16) 10/05/18 15:00 Hct 46.8 % (41.0-60) 10/05/18 15:00 MCV 93.5 fl (81-100) 10/05/18 15:00 MCH 31.5 pg (27.0-31.0) H 10/05/18 15:00 MCHC Differential 33.7 pg (28.0-36.0) 10/05/18 15:00 RDW 13.2 % (11.5-20.0) 10/05/18 15:00 Plt Count 262 Th/cmm (150-400) 10/05/18 15:00 MPV 8.2 fl 10/05/18 15:00 Add Manual Diff YES 10/05/18 15:00 Band Neutrophils % 0 % (0-10) 10/05/18 15:00 Neutrophils (Manual) 88 % (40-80) H 10/05/18 15:00 Lymphocytes 6 % (20-50) L 10/05/18 15:00 Monocytes 6 % (2-10) 10/05/18 15:00 Eosinophils 0 % (0-5) 10/05/18 15:00 Basophils 0 % (0-3) 10/05/18 15:00 Sodium 151 mEq/L (136-145) H 10/05/18 15:00 Potassium 3.7 mEq/L (3.5-5.1) 10/05/18 15:00 Chloride 116 mEq/L (98-107) H 10/05/18 15:00 Carbon Dioxide 23.3 mEq/L (21.0-31.0) 10/05/18 15:00 Anion Gap 15.4 (7.0-16.0) 10/05/18 15:00 BUN 53 mg/dL (7-25) H 10/05/18 15:00 Creatinine 1.0 mg/dL (0.6-1.2) 10/05/18 15:00 Est GFR ( Amer) > 60.0 ml/min (>90) 10/05/18 15:00 Est GFR (Non-Af Amer) 58.4 ml/min 10/05/18 15:00 BUN/Creatinine Ratio 53.0 10/05/18 15:00 Glucose 129 mg/dL (70-105) H 10/05/18 15:00 Calcium 12.3 mg/dL (8.6-10.3) H 10/05/18 15:00 Total Bilirubin 1.4 mg/dL (0.3-1.0) H 10/05/18 15:00 AST 40 U/L (13-39) H 10/05/18 15:00 ALT < 3 U/L (7-52) L 10/05/18 15:00 Alkaline Phosphatase 116 U/L (34-104) H 10/05/18 15:00 Total Protein 7.9 gm/dL (6.0-8.3) 10/05/18 15:00 Albumin 4.5 gm/dL (3.7-5.3) 10/05/18 15:00 Globulin 3.4 gm/dL 10/05/18 15:00 Albumin/Globulin Ratio 1.3 (1.0-1.8) 10/05/18 15:00 Triglycerides 70 mg/dL (<150) 10/03/18 05:50 Cholesterol 205 mg/dL (<200) H 10/03/18 05:50 LDL Cholesterol Direct 163 mg/dL (75-193) 10/03/18 05:50 HDL Cholesterol 38 mg/dL (23-92) 10/03/18 05:50 TSH 0.64 uIU/ml (0.34-5.60) 10/05/18 15:00 Urine Source CATH 10/06/18 05:50 Urine Color BROWN 10/06/18 05:50 Urine Clarity HAZY (CLEAR) 10/06/18 05:50 Urine pH 6.0 (4.6 - 8.0) 10/06/18 05:50 Ur Specific [place] >= 1.030 (1.005-1.030) 10/06/18 05:50 Urine Protein 100 mg/dL (NEGATIVE) H 10/06/18 05:50 Urine Glucose (UA) NEGATIVE mg/dL (NEGATIVE) 10/06/18 05:50 Urine Ketones TRACE mg/dL (NEGATIVE) 10/06/18 05:50 Urine Blood LARGE (NEGATIVE) H 10/06/18 05:50 Urine Nitrate NEGATIVE (NEGATIVE) 10/06/18 05:50 Urine Bilirubin SMALL (NEGATIVE) H 10/06/18 05:50 Urine Urobilinogen 0.2 E.U./dL (0.2 - 1.0) 10/06/18 05:50 Ur Leukocyte Esterase TRACE (NEGATIVE) H 10/06/18 05:50 Urine RBC 25-50 /hpf (0-5) H 10/06/18 05:50 Urine WBC 6-10 /hpf (0-5) H 10/06/18 05:50 Ur Epithelial Cells OCCASIONAL /lpf (FEW) 10/06/18 05:50 Urine Bacteria FEW /hpf (NONE SEEN) 10/06/18 05:50 - Physical Exam Vitals and I&O: Vital Signs Temp 99.1 F 10/09/18 08:00 Pulse 89 10/09/18 08:00 Resp 20 10/09/18 08:00 BP 116/76 10/09/18 08:00 Pulse Ox 94 10/09/18 08:00 Intake & Output 10/08/18 10/09/18 10/09/18 18:59 06:59 18:59 Intake Total 1200 240 Balance 1200 240 Intake: Oral 1200 240 Other: # Voids 2 # Bowel Movements 1 Active Medications: Current Medications Amantadine HCl (Symmetrel) 100 mg PO BID [facility] Stop: 12/03/18 16:59 Last Admin: 10/09/18 09:18 Dose: 100 mg Carbidopa/Levodopa (Sinemet 25mg-100 Mg) 2 tab PO TID KATYA Stop: 12/02/18 08:59 Last Admin: 10/09/18 09:18 Dose: 2 tab Clonazepam (Klonopin) 0.5 mg PO BID [facility]; Protocol Stop: 12/02/18 08:59 Last Admin: 10/09/18 09:18 Dose: 0.5 mg Docusate Sodium (Colace) 250 mg PO DAILY KATYA Stop: 12/02/18 08:59 Last Admin: 10/09/18 09:18 Dose: 250 mg Lorazepam (Ativan) 0.5 mg PO Q4HR PRN; Protocol PRN Reason: Anxiety Stop: 12/02/18 05:05 Last Admin: 10/04/18 21:30 Dose: 0.5 mg Megestrol Acetate (Megace) 400 mg PO BID KATYA; Protocol Stop: 12/04/18 16:59 Last Admin: 10/09/18 09:19 Dose: 400 mg Mirtazapine (Remeron) 15 mg PO HS KATYA; Protocol Stop: 12/02/18 20:59 Last Admin: 10/08/18 20:58 Dose: 15 mg Quetiapine Fumarate (Seroquel) 50 mg PO BID KATYA; Protocol Stop: 12/02/18 08:59 Last Admin: 10/09/18 09:18 Dose: 50 mg Trimethoprim/Sulfamethoxazole (Bactrim Ds) 1 tab PO BID KATYA Stop: 10/09/18 16:59 Last Admin: 10/09/18 09:18 Dose: 1 tab General: demented HEENT: NC/AT, PERRLA, EOMI Neck: Supple, No JVD Lungs: CTAB Cardiovascular: RRR, Normal S1, Normal S2, with murmur Abdomen: soft, thin, non-distended, positive bowel sound Extremities: excoriation, contracture Internal Medicine Assmt/Plan - Assessment Assessment: 1. Parkinson's disorder. 2. Hypertension. 3. Hyperparathyroidism. 4. History of endometrial cancer. 5. Hypercholesterolemia. uti hematuria - Plan Plan: monitor i+o ecnourage h2o cont bactrim continue current plan of care . Nutritional Asmnt/Malnutr-PDOC - Dietary Evaluation Malnutrition Findings (Please click <Entered> for more info): Nutritional Asmnt/Malnutrition Start: 10/07/18 11: 25 Text: Status: Complete Freq: Protocol: Document 10/07/18 11:26 KATHY (Rec: 10/07/18 11:31 KATHY [email or web address]) Nutritional Asmnt/Malnutrition Patient General Information Nutritional Screening Moderate Risk Diagnosis PSYCHOSIS Pertinent Medical Hx/Surgical Hx PARKINSONS, HTN, HYPERTHYROIDISM, ENDOMETRIAL CANCER Subjective Information PT IS A 68 YEAR OLD FEMALE FROM NURSING FACILITY ADMITTED ON 10/03 D/T PSYCHOSIS. ENSURE ENLIVE TID ADDED TO PTS DIET PER MD ORDER (10/05). PT IS ON MEGACE, CURRENTLY PO INTAKE IS AN ESTIMATED 50% X3 DAYS. NOTED WILLAM TEMPORAL WASTING ON H&P REPORT. HT: 55 WT: 185 LB (84.09 KG) ABW: 140 LB (63.64 KG) BMI: 30.85 (OBESE) GI: WNL, SOFT, NON-TENDER BM: NOT NOTED I/O: 120/NOT NOTED SKIN: WNL, INTACT JAMIE: 17 DIET ORDER: MECHANICAL SOFT, NA2GM ESTIMATED ENERGY NEEDS: ( GERIATRIC, ABW) 0075-8648 KCALS (25-30 KCALS/ KG) 63-76 G PRO (1.0-1.2 G/KG) 3095-4834 ML (25-30 ML/KG) PT PO INTAKE: ESTIMATED 50% MEALS X 3 DAYS, PER MEAL/ NUTRITION ACTIVITY RECORD. DIETARY IS CURRENTLY PROVIDING AN ESTIMATED 2300 KCALS AND 106 GM PRO. PER PT PO INTAKE, THIS IS PROVIDING AN ESTIMATED 1150 KCALS AND 53 GM PRO, TO MEET 72% KCAL AND 84% PRO NEEDS. Current Diet Order/ Nutrition Support MECHANICAL SOFT, NA2GM Pertinent Medications COLACE, MEGACE Pertinent Labs 10/05: NA 151, BUN/CR 53/1.0, GLUCOSE 129, CA 12.3, T BILI 1 .4, AST 40, ALT <3, ALH PHOS 116 Nutritional Hx/Data Height 5 ft 5 in Height (Calculated Centimeters) 165.1 Current Weight (lbs) 185 lb Weight (Calculated Kilograms) 83.9 Weight (Calculated Grams) 60863.6 [place] Body Weight 125 % [place] Body Weight 148 Body Mass Index (BMI) 30.7 Weight Status Obese GI Symptoms GI Symptoms None Last BM NOT NOTED Skin Integrity/Comment: WNL, INTACT JAMIE: 17 Current %PO Fair (50-74%) Estimated Nutritional Goals BEE in Kcals: Adj wt of IBW Calories/Kcals/Kg 25-30 Kcals Calculated 1677-4260 Protein: Adj wt of IBW Protein g/k.0-1.2 Protein Calculated 63-76 Fluid: ml 6097-0651 ML (25-30 ML/KG) Nutritional Problem 1. Problem Problem ALTERED NUTRITION RELATED LABS Etiology R/T PATHOPHYSIOLOGICAL CAUSES Signs/Symptoms: AEB GLUCOSE 129, NA 151, BUN/ CR 53/1.0, CA 12.3 Malnutrition Related to Morbid Obesity Malnutrition related to morbid obesity No Intervention/Recommendation Comments 1. CONTINUE WITH MECHANICAL SOFT, NA2GM DIET ORDERED. 2. ADD NUTRITIONAL SUPPLEMENT TID (COMPLETED). Expected Outcomes/Goals Expected Outcomes/Goals 1. PO INTAKE TO MEET 75% OF NUTRITIONAL NEEDS. 2. NUTRITION RELATED LABS TO TREND WNL IN 3-5 DAYS. 3. MONITOR PO INTAKE, WT, NUTRITION RELATED LABS AND SKIN INTEGRITY. 4. F/U MODERATE RISK IN 3-5 DAYS, 10/10-10/12
--- NOTE | 2018-10-10 13:22 | Internal Medicine Prog Note ---
Internal Medicine Subjective - Subjective Service Date: 10/10/18 Patient is:: awake, non-verbal, non-interactive Per staff patient has:: no adverse event, no episodes of fall, poor oral intake , tolerating meds Internal Medicine Objective - Results Result Diagrams: 10/05/18 15:00 10/05/18 15:00 Recent Labs: Laboratory Last Values WBC 14.4 Th/cmm (4.8-10.8) H 10/05/18 15:00 RBC 5.01 Mil/cmm (3.80-5.20) 10/05/18 15:00 Hgb 15.8 gm/dL (12-16) 10/05/18 15:00 Hct 46.8 % (41.0-60) 10/05/18 15:00 MCV 93.5 fl (81-100) 10/05/18 15:00 MCH 31.5 pg (27.0-31.0) H 10/05/18 15:00 MCHC Differential 33.7 pg (28.0-36.0) 10/05/18 15:00 RDW 13.2 % (11.5-20.0) 10/05/18 15:00 Plt Count 262 Th/cmm (150-400) 10/05/18 15:00 MPV 8.2 fl 10/05/18 15:00 Add Manual Diff YES 10/05/18 15:00 Band Neutrophils % 0 % (0-10) 10/05/18 15:00 Neutrophils (Manual) 88 % (40-80) H 10/05/18 15:00 Lymphocytes 6 % (20-50) L 10/05/18 15:00 Monocytes 6 % (2-10) 10/05/18 15:00 Eosinophils 0 % (0-5) 10/05/18 15:00 Basophils 0 % (0-3) 10/05/18 15:00 Sodium 151 mEq/L (136-145) H 10/05/18 15:00 Potassium 3.7 mEq/L (3.5-5.1) 10/05/18 15:00 Chloride 116 mEq/L (98-107) H 10/05/18 15:00 Carbon Dioxide 23.3 mEq/L (21.0-31.0) 10/05/18 15:00 Anion Gap 15.4 (7.0-16.0) 10/05/18 15:00 BUN 53 mg/dL (7-25) H 10/05/18 15:00 Creatinine 1.0 mg/dL (0.6-1.2) 10/05/18 15:00 Est GFR ( Amer) > 60.0 ml/min (>90) 10/05/18 15:00 Est GFR (Non-Af Amer) 58.4 ml/min 10/05/18 15:00 BUN/Creatinine Ratio 53.0 10/05/18 15:00 Glucose 129 mg/dL (70-105) H 10/05/18 15:00 Calcium 12.3 mg/dL (8.6-10.3) H 10/05/18 15:00 Total Bilirubin 1.4 mg/dL (0.3-1.0) H 10/05/18 15:00 AST 40 U/L (13-39) H 10/05/18 15:00 ALT < 3 U/L (7-52) L 10/05/18 15:00 Alkaline Phosphatase 116 U/L (34-104) H 10/05/18 15:00 Total Protein 7.9 gm/dL (6.0-8.3) 10/05/18 15:00 Albumin 4.5 gm/dL (3.7-5.3) 10/05/18 15:00 Globulin 3.4 gm/dL 10/05/18 15:00 Albumin/Globulin Ratio 1.3 (1.0-1.8) 10/05/18 15:00 Triglycerides 70 mg/dL (<150) 10/03/18 05:50 Cholesterol 205 mg/dL (<200) H 10/03/18 05:50 LDL Cholesterol Direct 163 mg/dL (75-193) 10/03/18 05:50 HDL Cholesterol 38 mg/dL (23-92) 10/03/18 05:50 TSH 0.64 uIU/ml (0.34-5.60) 10/05/18 15:00 Urine Source CATH 10/06/18 05:50 Urine Color BROWN 10/06/18 05:50 Urine Clarity HAZY (CLEAR) 10/06/18 05:50 Urine pH 6.0 (4.6 - 8.0) 10/06/18 05:50 Ur Specific [place] >= 1.030 (1.005-1.030) 10/06/18 05:50 Urine Protein 100 mg/dL (NEGATIVE) H 10/06/18 05:50 Urine Glucose (UA) NEGATIVE mg/dL (NEGATIVE) 10/06/18 05:50 Urine Ketones TRACE mg/dL (NEGATIVE) 10/06/18 05:50 Urine Blood LARGE (NEGATIVE) H 10/06/18 05:50 Urine Nitrate NEGATIVE (NEGATIVE) 10/06/18 05:50 Urine Bilirubin SMALL (NEGATIVE) H 10/06/18 05:50 Urine Urobilinogen 0.2 E.U./dL (0.2 - 1.0) 10/06/18 05:50 Ur Leukocyte Esterase TRACE (NEGATIVE) H 10/06/18 05:50 Urine RBC 25-50 /hpf (0-5) H 10/06/18 05:50 Urine WBC 6-10 /hpf (0-5) H 10/06/18 05:50 Ur Epithelial Cells OCCASIONAL /lpf (FEW) 10/06/18 05:50 Urine Bacteria FEW /hpf (NONE SEEN) 10/06/18 05:50 - Physical Exam Vitals and I&O: Vital Signs Temp 99.2 F 10/10/18 06:47 Pulse 77 10/10/18 06:47 Resp 20 10/10/18 06:47 BP 110/60 10/09/18 20:00 Pulse Ox 94 10/10/18 06:47 Intake & Output 10/09/18 10/10/18 10/10/18 18:59 06:59 18:59 Intake Total 900 960 Balance 900 960 Intake: Oral 900 960 Other: # Voids 3 2 # Bowel Movements 0 1 Active Medications: Current Medications Amantadine HCl (Symmetrel) 100 mg PO BID [facility] Stop: 12/03/18 16:59 Last Admin: 10/10/18 09:00 Dose: 100 mg Carbidopa/Levodopa (Sinemet 25mg-100 Mg) 2 tab PO TID KATYA Stop: 12/02/18 08:59 Last Admin: 10/10/18 09:00 Dose: 2 tab Clonazepam (Klonopin) 0.5 mg PO BID [facility]; Protocol Stop: 12/02/18 08:59 Last Admin: 10/10/18 09:00 Dose: 0.5 mg Docusate Sodium (Colace) 250 mg PO DAILY KATYA Stop: 12/02/18 08:59 Last Admin: 10/10/18 09:00 Dose: 250 mg Lorazepam (Ativan) 0.5 mg PO Q4HR PRN; Protocol PRN Reason: Anxiety Stop: 12/02/18 05:05 Last Admin: 10/10/18 09:00 Dose: 0.5 mg Megestrol Acetate (Megace) 400 mg PO BID KATYA; Protocol Stop: 12/04/18 16:59 Last Admin: 10/10/18 09:00 Dose: 400 mg Mirtazapine (Remeron) 15 mg PO HS KATYA; Protocol Stop: 12/02/18 20:59 Last Admin: 10/09/18 21:12 Dose: 15 mg Quetiapine Fumarate (Seroquel) 50 mg PO BID KATYA; Protocol Stop: 12/02/18 08:59 Last Admin: 10/10/18 09:00 Dose: 50 mg General: demented HEENT: NC/AT, PERRLA, EOMI Neck: Supple, No JVD Lungs: CTAB Cardiovascular: RRR, Normal S1, Normal S2, with murmur Abdomen: soft, thin, non-distended, positive bowel sound Extremities: excoriation, contracture Internal Medicine Assmt/Plan - Assessment Assessment: 1. Parkinson's disorder. 2. Hypertension. 3. Hyperparathyroidism. 4. History of endometrial cancer. 5. Hypercholesterolemia. uti hematuria - Plan Plan: monitor i+o ecnourage h2o cont bactrim continue current plan of care . Nutritional Asmnt/Malnutr-PDOC - Dietary Evaluation Malnutrition Findings (Please click <Entered> for more info): Nutritional Asmnt/Malnutrition Start: 10/07/18 11: 25 Text: Status: Complete Freq: Protocol: Document 10/07/18 11:26 KATHY (Rec: 10/07/18 11:31 KATHY [email or web address]) Nutritional Asmnt/Malnutrition Patient General Information Nutritional Screening Moderate Risk Diagnosis PSYCHOSIS Pertinent Medical Hx/Surgical Hx PARKINSONS, HTN, HYPERTHYROIDISM, ENDOMETRIAL CANCER Subjective Information PT IS A 68 YEAR OLD FEMALE FROM NURSING FACILITY ADMITTED ON 10/03 D/T PSYCHOSIS. ENSURE ENLIVE TID ADDED TO PTS DIET PER MD ORDER (10/05). PT IS ON MEGACE, CURRENTLY PO INTAKE IS AN ESTIMATED 50% X3 DAYS. NOTED WILLAM TEMPORAL WASTING ON H&P REPORT. HT: 55 WT: 185 LB (84.09 KG) ABW: 140 LB (63.64 KG) BMI: 30.85 (OBESE) GI: WNL, SOFT, NON-TENDER BM: NOT NOTED I/O: 120/NOT NOTED SKIN: WNL, INTACT JAMIE: 17 DIET ORDER: MECHANICAL SOFT, NA2GM ESTIMATED ENERGY NEEDS: ( GERIATRIC, ABW) 5988-4464 KCALS (25-30 KCALS/ KG) 63-76 G PRO (1.0-1.2 G/KG) 8993-4313 ML (25-30 ML/KG) PT PO INTAKE: ESTIMATED 50% MEALS X 3 DAYS, PER MEAL/ NUTRITION ACTIVITY RECORD. DIETARY IS CURRENTLY PROVIDING AN ESTIMATED 2300 KCALS AND 106 GM PRO. PER PT PO INTAKE, THIS IS PROVIDING AN ESTIMATED 1150 KCALS AND 53 GM PRO, TO MEET 72% KCAL AND 84% PRO NEEDS. Current Diet Order/ Nutrition Support MECHANICAL SOFT, NA2GM Pertinent Medications COLACE, MEGACE Pertinent Labs 10/05: NA 151, BUN/CR 53/1.0, GLUCOSE 129, CA 12.3, T BILI 1 .4, AST 40, ALT <3, ALH PHOS 116 Nutritional Hx/Data Height 5 ft 5 in Height (Calculated Centimeters) 165.1 Current Weight (lbs) 185 lb Weight (Calculated Kilograms) 83.9 Weight (Calculated Grams) 29419.6 [place] Body Weight 125 % [place] Body Weight 148 Body Mass Index (BMI) 30.7 Weight Status Obese GI Symptoms GI Symptoms None Last BM NOT NOTED Skin Integrity/Comment: WNL, INTACT JAMIE: 17 Current %PO Fair (50-74%) Estimated Nutritional Goals BEE in Kcals: Adj wt of IBW Calories/Kcals/Kg 25-30 Kcals Calculated 2938-1427 Protein: Adj wt of IBW Protein g/k.0-1.2 Protein Calculated 63-76 Fluid: ml 5816-0333 ML (25-30 ML/KG) Nutritional Problem 1. Problem Problem ALTERED NUTRITION RELATED LABS Etiology R/T PATHOPHYSIOLOGICAL CAUSES Signs/Symptoms: AEB GLUCOSE 129, NA 151, BUN/ CR 53/1.0, CA 12.3 Malnutrition Related to Morbid Obesity Malnutrition related to morbid obesity No Intervention/Recommendation Comments 1. CONTINUE WITH MECHANICAL SOFT, NA2GM DIET ORDERED. 2. ADD NUTRITIONAL SUPPLEMENT TID (COMPLETED). Expected Outcomes/Goals Expected Outcomes/Goals 1. PO INTAKE TO MEET 75% OF NUTRITIONAL NEEDS. 2. NUTRITION RELATED LABS TO TREND WNL IN 3-5 DAYS. 3. MONITOR PO INTAKE, WT, NUTRITION RELATED LABS AND SKIN INTEGRITY. 4. F/U MODERATE RISK IN 3-5 DAYS, 10/10-10/12
--- NOTE | 2018-10-10 14:32 | Progress Notes ---
DATE: 10/09/2018 SUBJECTIVE: The patient was seen and evaluated. The patient's chart reviewed. IDENTIFYING DATA: A 68-year-old female brought in here from [facility] with a history of bipolar and Parkinson disease, hallucinating, seeing big giants. MEDICATION RECONCILIATION: Clonazepam 0.5 b.i.d., Ativan as needed, mirtazapine 15 mg at nighttime, Sinemet, Seroquel 50 mg p.o. b.i.d. and Bactrim. Today on [id number]-[id number] evaluation, nursing staff reported the patient is currently being treated with UTI. She does observe to be slightly calmer and no active hallucinations. Today on [id number]-[id number] evaluation, the patient still needs a lot of redirection to understand where she is, amenable to treatment. No agitation, no irritability, no SI. ASSESSMENT AND PLAN: History of bipolar. We will continue with the current medication regimen as stated current psychotic symptoms are dissipating secondary to delirium, which are now better tolerated. We will continue working very closely with mental mental health case manager for a safe disposition when further psychiatrically stable. JOB# [id number]
--- NOTE | 2018-10-11 01:07 | Progress Notes ---
DATE: 10/10/2018 Covering over the weekend. SUBJECTIVE: Today on [id number] evaluation, the patient denies any complications or side effects. She reports she slept well. She is confused. She does not know exactly where she is. She is oriented to person, place. Examination is stable from last visit. ASSESSMENT AND PLAN: Dementia. Currently working with placement with school social worker to assist the patient with the semi structured environment to help her assist in ___. JOB# [id number]
--- NOTE | 2018-10-11 12:04 | Internal Medicine Prog Note ---
Internal Medicine Subjective - Subjective Patient seen and examined:: with staff, chart reviewed, other (per sister used to walk all the time) Patient is:: awake, non-verbal, non-interactive Per staff patient has:: no adverse event, no episodes of fall, poor oral intake , tolerating meds Internal Medicine Objective - Results Result Diagrams: 10/05/18 15:00 10/05/18 15:00 Recent Labs: Laboratory Last Values WBC 14.4 Th/cmm (4.8-10.8) H 10/05/18 15:00 RBC 5.01 Mil/cmm (3.80-5.20) 10/05/18 15:00 Hgb 15.8 gm/dL (12-16) 10/05/18 15:00 Hct 46.8 % (41.0-60) 10/05/18 15:00 MCV 93.5 fl (81-100) 10/05/18 15:00 MCH 31.5 pg (27.0-31.0) H 10/05/18 15:00 MCHC Differential 33.7 pg (28.0-36.0) 10/05/18 15:00 RDW 13.2 % (11.5-20.0) 10/05/18 15:00 Plt Count 262 Th/cmm (150-400) 10/05/18 15:00 MPV 8.2 fl 10/05/18 15:00 Add Manual Diff YES 10/05/18 15:00 Band Neutrophils % 0 % (0-10) 10/05/18 15:00 Neutrophils (Manual) 88 % (40-80) H 10/05/18 15:00 Lymphocytes 6 % (20-50) L 10/05/18 15:00 Monocytes 6 % (2-10) 10/05/18 15:00 Eosinophils 0 % (0-5) 10/05/18 15:00 Basophils 0 % (0-3) 10/05/18 15:00 Sodium 151 mEq/L (136-145) H 10/05/18 15:00 Potassium 3.7 mEq/L (3.5-5.1) 10/05/18 15:00 Chloride 116 mEq/L (98-107) H 10/05/18 15:00 Carbon Dioxide 23.3 mEq/L (21.0-31.0) 10/05/18 15:00 Anion Gap 15.4 (7.0-16.0) 10/05/18 15:00 BUN 53 mg/dL (7-25) H 10/05/18 15:00 Creatinine 1.0 mg/dL (0.6-1.2) 10/05/18 15:00 Est GFR ( Amer) > 60.0 ml/min (>90) 10/05/18 15:00 Est GFR (Non-Af Amer) 58.4 ml/min 10/05/18 15:00 BUN/Creatinine Ratio 53.0 10/05/18 15:00 Glucose 129 mg/dL (70-105) H 10/05/18 15:00 Calcium 12.3 mg/dL (8.6-10.3) H 10/05/18 15:00 Total Bilirubin 1.4 mg/dL (0.3-1.0) H 10/05/18 15:00 AST 40 U/L (13-39) H 10/05/18 15:00 ALT < 3 U/L (7-52) L 10/05/18 15:00 Alkaline Phosphatase 116 U/L (34-104) H 10/05/18 15:00 Total Protein 7.9 gm/dL (6.0-8.3) 10/05/18 15:00 Albumin 4.5 gm/dL (3.7-5.3) 10/05/18 15:00 Globulin 3.4 gm/dL 10/05/18 15:00 Albumin/Globulin Ratio 1.3 (1.0-1.8) 10/05/18 15:00 Triglycerides 70 mg/dL (<150) 10/03/18 05:50 Cholesterol 205 mg/dL (<200) H 10/03/18 05:50 LDL Cholesterol Direct 163 mg/dL (75-193) 10/03/18 05:50 HDL Cholesterol 38 mg/dL (23-92) 10/03/18 05:50 TSH 0.64 uIU/ml (0.34-5.60) 10/05/18 15:00 Urine Source CATH 10/06/18 05:50 Urine Color BROWN 10/06/18 05:50 Urine Clarity HAZY (CLEAR) 10/06/18 05:50 Urine pH 6.0 (4.6 - 8.0) 10/06/18 05:50 Ur Specific [place] >= 1.030 (1.005-1.030) 10/06/18 05:50 Urine Protein 100 mg/dL (NEGATIVE) H 10/06/18 05:50 Urine Glucose (UA) NEGATIVE mg/dL (NEGATIVE) 10/06/18 05:50 Urine Ketones TRACE mg/dL (NEGATIVE) 10/06/18 05:50 Urine Blood LARGE (NEGATIVE) H 10/06/18 05:50 Urine Nitrate NEGATIVE (NEGATIVE) 10/06/18 05:50 Urine Bilirubin SMALL (NEGATIVE) H 10/06/18 05:50 Urine Urobilinogen 0.2 E.U./dL (0.2 - 1.0) 10/06/18 05:50 Ur Leukocyte Esterase TRACE (NEGATIVE) H 10/06/18 05:50 Urine RBC 25-50 /hpf (0-5) H 10/06/18 05:50 Urine WBC 6-10 /hpf (0-5) H 10/06/18 05:50 Ur Epithelial Cells OCCASIONAL /lpf (FEW) 10/06/18 05:50 Urine Bacteria FEW /hpf (NONE SEEN) 10/06/18 05:50 - Physical Exam Vitals and I&O: Vital Signs Temp 99.0 F 10/11/18 06:09 Pulse 71 10/11/18 06:09 Resp 20 10/11/18 06:09 BP 127/82 10/11/18 06:09 Pulse Ox 96 10/11/18 06:09 Intake & Output 10/10/18 10/11/18 10/11/18 18:59 06:59 18:59 Intake Total 1080 240 Balance 1080 240 Intake: Oral 1080 240 Other: # Voids 3 2 # Bowel Movements 0 Active Medications: Current Medications Amantadine HCl (Symmetrel) 100 mg PO BID KATYA Stop: 12/03/18 16:59 Last Admin: 10/11/18 10:04 Dose: 100 mg Carbidopa/Levodopa (Sinemet 25mg-100 Mg) 2 tab PO TID KATYA Stop: 12/02/18 08:59 Last Admin: 10/11/18 10:03 Dose: 2 tab Docusate Sodium (Colace) 250 mg PO DAILY KATYA Stop: 12/02/18 08:59 Last Admin: 10/11/18 10:03 Dose: 250 mg Megestrol Acetate (Megace) 400 mg PO BID KATYA; Protocol Stop: 12/04/18 16:59 Last Admin: 10/11/18 10:03 Dose: 400 mg Mirtazapine (Remeron) 15 mg PO HS KATYA; Protocol Stop: 12/02/18 20:59 Last Admin: 10/10/18 21:03 Dose: 15 mg Quetiapine Fumarate (Seroquel) 50 mg PO BID KATYA; Protocol Stop: 12/02/18 08:59 Last Admin: 10/11/18 10:04 Dose: 50 mg General: demented HEENT: NC/AT, PERRLA, EOMI Neck: Supple, No JVD Lungs: CTAB Cardiovascular: RRR, Normal S1, Normal S2, with murmur Abdomen: soft, thin, non-distended, positive bowel sound Extremities: excoriation, contracture Internal Medicine Assmt/Plan - Assessment Assessment: ASSESSMENT AND PLAN: 1. Parkinson's disorder. 2. Hypertension. 3. Hyperparathyroidism. 4. History of endometrial cancer. 5. Hypercholesterolemia. uti hematuria - Plan Plan: PLAN: Poor p.o. intake. We will add Ensure. We will do calorie count. We will check UA and C and S and chest x-ray if not done. We are looking for results of the lab test done from outside hospital. We will continue monitor the patient closely. start on bactrim will refer to PT tiffany rn Nutritional Asmnt/Malnutr-PDOC - Dietary Evaluation Malnutrition Findings (Please click <Entered> for more info): Nutritional Asmnt/Malnutrition Start: 10/07/18 11: 25 Text: Status: Complete Freq: Protocol: Document 10/07/18 11:26 KATHY (Rec: 10/07/18 11:31 KATHY [email or web address]) Nutritional Asmnt/Malnutrition Patient General Information Nutritional Screening Moderate Risk Diagnosis PSYCHOSIS Pertinent Medical Hx/Surgical Hx PARKINSONS, HTN, HYPERTHYROIDISM, ENDOMETRIAL CANCER Subjective Information PT IS A 68 YEAR OLD FEMALE FROM NURSING FACILITY ADMITTED ON 10/03 D/T PSYCHOSIS. ENSURE ENLIVE TID ADDED TO PTS DIET PER MD ORDER (10/05). PT IS ON MEGACE, CURRENTLY PO INTAKE IS AN ESTIMATED 50% X3 DAYS. NOTED WILLAM TEMPORAL WASTING ON H&P REPORT. HT: 55 WT: 185 LB (84.09 KG) ABW: 140 LB (63.64 KG) BMI: 30.85 (OBESE) GI: WNL, SOFT, NON-TENDER BM: NOT NOTED I/O: 120/NOT NOTED SKIN: WNL, INTACT JAMIE: 17 DIET ORDER: MECHANICAL SOFT, NA2GM ESTIMATED ENERGY NEEDS: ( GERIATRIC, ABW) 7220-5791 KCALS (25-30 KCALS/ KG) 63-76 G PRO (1.0-1.2 G/KG) 9369-8848 ML (25-30 ML/KG) PT PO INTAKE: ESTIMATED 50% MEALS X 3 DAYS, PER MEAL/ NUTRITION ACTIVITY RECORD. DIETARY IS CURRENTLY PROVIDING AN ESTIMATED 2300 KCALS AND 106 GM PRO. PER PT PO INTAKE, THIS IS PROVIDING AN ESTIMATED 1150 KCALS AND 53 GM PRO, TO MEET 72% KCAL AND 84% PRO NEEDS. Current Diet Order/ Nutrition Support MECHANICAL SOFT, NA2GM Pertinent Medications COLACE, MEGACE Pertinent Labs 10/05: NA 151, BUN/CR 53/1.0, GLUCOSE 129, CA 12.3, T BILI 1 .4, AST 40, ALT <3, ALH PHOS 116 Nutritional Hx/Data Height 1.65 m Height (Calculated Centimeters) 165.1 Current Weight (lbs) 83.915 kg Weight (Calculated Kilograms) 83.9 Weight (Calculated Grams) 40225.6 [place] Body Weight 125 % [place] Body Weight 148 Body Mass Index (BMI) 30.7 Weight Status Obese GI Symptoms GI Symptoms None Last BM NOT NOTED Skin Integrity/Comment: WNL, INTACT JAMIE: 17 Current %PO Fair (50-74%) Estimated Nutritional Goals BEE in Kcals: Adj wt of IBW Calories/Kcals/Kg 25-30 Kcals Calculated 7064-3344 Protein: Adj wt of IBW Protein g/k.0-1.2 Protein Calculated 63-76 Fluid: ml 9648-3034 ML (25-30 ML/KG) Nutritional Problem 1. Problem Problem ALTERED NUTRITION RELATED LABS Etiology R/T PATHOPHYSIOLOGICAL CAUSES Signs/Symptoms: AEB GLUCOSE 129, NA 151, BUN/ CR 53/1.0, CA 12.3 Malnutrition Related to Morbid Obesity Malnutrition related to morbid obesity No Intervention/Recommendation Comments 1. CONTINUE WITH MECHANICAL SOFT, NA2GM DIET ORDERED. 2. ADD NUTRITIONAL SUPPLEMENT TID (COMPLETED). Expected Outcomes/Goals Expected Outcomes/Goals 1. PO INTAKE TO MEET 75% OF NUTRITIONAL NEEDS. 2. NUTRITION RELATED LABS TO TREND WNL IN 3-5 DAYS. 3. MONITOR PO INTAKE, WT, NUTRITION RELATED LABS AND SKIN INTEGRITY. 4. F/U MODERATE RISK IN 3-5 DAYS, 10/10-10/12
--- NOTE | 2018-10-12 09:51 | Progress Notes ---
DATE: 10/11/2018 SUBJECTIVE: The patient is currently in the hospital, still not saying too much, just stating hello on exam, mostly withdrawn, keeps to herself, very confused, poor orientation, not answering most questions, staring blankly, likely approaching her baseline and some concerns about impulsivity, acting up behaviors. Staff noting she is generally cooperative, seems to be getting along well with others. The patient will be going to a place in [place]. Placement confirmed. ASSESSMENT: The patient remains confused, still depressed, withdrawn, concerns for poor impulse control. PLAN: We will continue to monitor. Medications were reviewed. JOB# [id number]
--- NOTE | 2018-10-12 11:56 | Internal Medicine Prog Note ---
Internal Medicine Subjective - Subjective Patient seen and examined:: with staff, chart reviewed Patient is:: awake, non-verbal, non-interactive Per staff patient has:: no adverse event, no episodes of fall, poor oral intake , tolerating meds Internal Medicine Objective - Results Result Diagrams: 10/05/18 15:00 10/05/18 15:00 Recent Labs: Laboratory Last Values WBC 14.4 Th/cmm (4.8-10.8) H 10/05/18 15:00 RBC 5.01 Mil/cmm (3.80-5.20) 10/05/18 15:00 Hgb 15.8 gm/dL (12-16) 10/05/18 15:00 Hct 46.8 % (41.0-60) 10/05/18 15:00 MCV 93.5 fl (81-100) 10/05/18 15:00 MCH 31.5 pg (27.0-31.0) H 10/05/18 15:00 MCHC Differential 33.7 pg (28.0-36.0) 10/05/18 15:00 RDW 13.2 % (11.5-20.0) 10/05/18 15:00 Plt Count 262 Th/cmm (150-400) 10/05/18 15:00 MPV 8.2 fl 10/05/18 15:00 Add Manual Diff YES 10/05/18 15:00 Band Neutrophils % 0 % (0-10) 10/05/18 15:00 Neutrophils (Manual) 88 % (40-80) H 10/05/18 15:00 Lymphocytes 6 % (20-50) L 10/05/18 15:00 Monocytes 6 % (2-10) 10/05/18 15:00 Eosinophils 0 % (0-5) 10/05/18 15:00 Basophils 0 % (0-3) 10/05/18 15:00 Sodium 151 mEq/L (136-145) H 10/05/18 15:00 Potassium 3.7 mEq/L (3.5-5.1) 10/05/18 15:00 Chloride 116 mEq/L (98-107) H 10/05/18 15:00 Carbon Dioxide 23.3 mEq/L (21.0-31.0) 10/05/18 15:00 Anion Gap 15.4 (7.0-16.0) 10/05/18 15:00 BUN 53 mg/dL (7-25) H 10/05/18 15:00 Creatinine 1.0 mg/dL (0.6-1.2) 10/05/18 15:00 Est GFR ( Amer) > 60.0 ml/min (>90) 10/05/18 15:00 Est GFR (Non-Af Amer) 58.4 ml/min 10/05/18 15:00 BUN/Creatinine Ratio 53.0 10/05/18 15:00 Glucose 129 mg/dL (70-105) H 10/05/18 15:00 Calcium 12.3 mg/dL (8.6-10.3) H 10/05/18 15:00 Total Bilirubin 1.4 mg/dL (0.3-1.0) H 10/05/18 15:00 AST 40 U/L (13-39) H 10/05/18 15:00 ALT < 3 U/L (7-52) L 10/05/18 15:00 Alkaline Phosphatase 116 U/L (34-104) H 10/05/18 15:00 Total Protein 7.9 gm/dL (6.0-8.3) 10/05/18 15:00 Albumin 4.5 gm/dL (3.7-5.3) 10/05/18 15:00 Globulin 3.4 gm/dL 10/05/18 15:00 Albumin/Globulin Ratio 1.3 (1.0-1.8) 10/05/18 15:00 Triglycerides 70 mg/dL (<150) 10/03/18 05:50 Cholesterol 205 mg/dL (<200) H 10/03/18 05:50 LDL Cholesterol Direct 163 mg/dL (75-193) 10/03/18 05:50 HDL Cholesterol 38 mg/dL (23-92) 10/03/18 05:50 TSH 0.64 uIU/ml (0.34-5.60) 10/05/18 15:00 Urine Source CATH 10/06/18 05:50 Urine Color BROWN 10/06/18 05:50 Urine Clarity HAZY (CLEAR) 10/06/18 05:50 Urine pH 6.0 (4.6 - 8.0) 10/06/18 05:50 Ur Specific [place] >= 1.030 (1.005-1.030) 10/06/18 05:50 Urine Protein 100 mg/dL (NEGATIVE) H 10/06/18 05:50 Urine Glucose (UA) NEGATIVE mg/dL (NEGATIVE) 10/06/18 05:50 Urine Ketones TRACE mg/dL (NEGATIVE) 10/06/18 05:50 Urine Blood LARGE (NEGATIVE) H 10/06/18 05:50 Urine Nitrate NEGATIVE (NEGATIVE) 10/06/18 05:50 Urine Bilirubin SMALL (NEGATIVE) H 10/06/18 05:50 Urine Urobilinogen 0.2 E.U./dL (0.2 - 1.0) 10/06/18 05:50 Ur Leukocyte Esterase TRACE (NEGATIVE) H 10/06/18 05:50 Urine RBC 25-50 /hpf (0-5) H 10/06/18 05:50 Urine WBC 6-10 /hpf (0-5) H 10/06/18 05:50 Ur Epithelial Cells OCCASIONAL /lpf (FEW) 10/06/18 05:50 Urine Bacteria FEW /hpf (NONE SEEN) 10/06/18 05:50 - Physical Exam Vitals and I&O: Vital Signs Temp 99.2 F 10/12/18 06:04 Pulse 68 10/12/18 06:04 Resp 20 10/12/18 06:04 BP 129/76 10/12/18 06:04 Pulse Ox 97 10/12/18 06:04 Intake & Output 10/11/18 10/12/18 10/12/18 18:59 06:59 18:59 Intake Total 850 120 Balance 850 120 Intake: Oral 850 120 Other: # Voids 3 1 # Bowel Movements 0 0 Active Medications: Current Medications Amantadine HCl (Symmetrel) 100 mg PO BID [facility] Stop: 12/03/18 16:59 Last Admin: 10/12/18 08:30 Dose: 100 mg Carbidopa/Levodopa (Sinemet 25mg-100 Mg) 2 tab PO TID KATYA Stop: 12/02/18 08:59 Last Admin: 10/12/18 08:30 Dose: 2 tab Docusate Sodium (Colace) 250 mg PO DAILY KATYA Stop: 12/02/18 08:59 Last Admin: 10/12/18 08:31 Dose: 250 mg Megestrol Acetate (Megace) 400 mg PO BID KATYA; Protocol Stop: 12/04/18 16:59 Last Admin: 10/12/18 08:31 Dose: 400 mg Mirtazapine (Remeron) 15 mg PO HS KATYA; Protocol Stop: 12/02/18 20:59 Last Admin: 10/11/18 21:06 Dose: 15 mg Quetiapine Fumarate (Seroquel) 50 mg PO BID KATYA; Protocol Stop: 12/02/18 08:59 Last Admin: 10/12/18 08:31 Dose: 50 mg General: demented HEENT: NC/AT, PERRLA, EOMI Neck: Supple, No JVD Lungs: CTAB Cardiovascular: RRR, Normal S1, Normal S2, with murmur Abdomen: soft, thin, non-distended, positive bowel sound Extremities: excoriation, contracture Internal Medicine Assmt/Plan - Assessment Assessment: ASSESSMENT AND PLAN: 1. Parkinson's disorder. 2. Hypertension. 3. Hyperparathyroidism. 4. History of endometrial cancer. 5. Hypercholesterolemia. uti hematuria - Plan Plan: PLAN: Poor p.o. intake. We will add Ensure. We will do calorie count. We will check UA and C and S and chest x-ray if not done. We are looking for results of the lab test done from outside hospital. We will continue monitor the patient closely. start on bactrim will refer to PT tiffany rn Nutritional Asmnt/Malnutr-PDOC - Dietary Evaluation Malnutrition Findings (Please click <Entered> for more info): Nutritional Asmnt/Malnutrition Start: 10/07/18 11: 25 Text: Status: Complete Freq: Protocol: Document 10/07/18 11:26 KATHY (Rec: 10/07/18 11:31 KATHY [email or web address]) Nutritional Asmnt/Malnutrition Patient General Information Nutritional Screening Moderate Risk Diagnosis PSYCHOSIS Pertinent Medical Hx/Surgical Hx PARKINSONS, HTN, HYPERTHYROIDISM, ENDOMETRIAL CANCER Subjective Information PT IS A 68 YEAR OLD FEMALE FROM NURSING FACILITY ADMITTED ON 10/03 D/T PSYCHOSIS. ENSURE ENLIVE TID ADDED TO PTS DIET PER MD ORDER (10/05). PT IS ON MEGACE, CURRENTLY PO INTAKE IS AN ESTIMATED 50% X3 DAYS. NOTED WILLAM TEMPORAL WASTING ON H&P REPORT. HT: 55 WT: 185 LB (84.09 KG) ABW: 140 LB (63.64 KG) BMI: 30.85 (OBESE) GI: WNL, SOFT, NON-TENDER BM: NOT NOTED I/O: 120/NOT NOTED SKIN: WNL, INTACT JAMIE: 17 DIET ORDER: MECHANICAL SOFT, NA2GM ESTIMATED ENERGY NEEDS: ( GERIATRIC, ABW) 4724-7294 KCALS (25-30 KCALS/ KG) 63-76 G PRO (1.0-1.2 G/KG) 2313-5523 ML (25-30 ML/KG) PT PO INTAKE: ESTIMATED 50% MEALS X 3 DAYS, PER MEAL/ NUTRITION ACTIVITY RECORD. DIETARY IS CURRENTLY PROVIDING AN ESTIMATED 2300 KCALS AND 106 GM PRO. PER PT PO INTAKE, THIS IS PROVIDING AN ESTIMATED 1150 KCALS AND 53 GM PRO, TO MEET 72% KCAL AND 84% PRO NEEDS. Current Diet Order/ Nutrition Support MECHANICAL SOFT, NA2GM Pertinent Medications COLACE, MEGACE Pertinent Labs 10/05: NA 151, BUN/CR 53/1.0, GLUCOSE 129, CA 12.3, T BILI 1 .4, AST 40, ALT <3, ALH PHOS 116 Nutritional Hx/Data Height 1.65 m Height (Calculated Centimeters) 165.1 Current Weight (lbs) 83.915 kg Weight (Calculated Kilograms) 83.9 Weight (Calculated Grams) 06439.6 [place] Body Weight 125 % [place] Body Weight 148 Body Mass Index (BMI) 30.7 Weight Status Obese GI Symptoms GI Symptoms None Last BM NOT NOTED Skin Integrity/Comment: WNL, INTACT JAMIE: 17 Current %PO Fair (50-74%) Estimated Nutritional Goals BEE in Kcals: Adj wt of IBW Calories/Kcals/Kg 25-30 Kcals Calculated 4247-7172 Protein: Adj wt of IBW Protein g/k.0-1.2 Protein Calculated 63-76 Fluid: ml 9804-5127 ML (25-30 ML/KG) Nutritional Problem 1. Problem Problem ALTERED NUTRITION RELATED LABS Etiology R/T PATHOPHYSIOLOGICAL CAUSES Signs/Symptoms: AEB GLUCOSE 129, NA 151, BUN/ CR 53/1.0, CA 12.3 Malnutrition Related to Morbid Obesity Malnutrition related to morbid obesity No Intervention/Recommendation Comments 1. CONTINUE WITH MECHANICAL SOFT, NA2GM DIET ORDERED. 2. ADD NUTRITIONAL SUPPLEMENT TID (COMPLETED). Expected Outcomes/Goals Expected Outcomes/Goals 1. PO INTAKE TO MEET 75% OF NUTRITIONAL NEEDS. 2. NUTRITION RELATED LABS TO TREND WNL IN 3-5 DAYS. 3. MONITOR PO INTAKE, WT, NUTRITION RELATED LABS AND SKIN INTEGRITY. 4. F/U MODERATE RISK IN 3-5 DAYS, 10/10-10/12
--- NOTE | 2018-10-12 22:26 | Progress Notes ---
DATE: 10/12/2018 The patient is still confused, only answering how she is doing, she just states okay, not really answering any other questions, staring blankly. Likely approaching her baseline, slept fairly well. No yelling or out of control behaviors, is very confused, still with some screaming episodes, but otherwise seems to be showing some signs of improvement, especially since she was admitted to the hospital. Taking her medications. AO to self only, not answering any other questions. The patient was not aggressive or agitated at this time. We recommend further 24 hours of monitoring and I recommend discharge in the next 1-2 days. JOB# [id number]
--- NOTE | 2018-10-13 12:10 | Internal Medicine Prog Note ---
Internal Medicine Subjective - Subjective Patient seen and examined:: with staff, chart reviewed Patient is:: awake, non-verbal, non-interactive Per staff patient has:: no adverse event, no episodes of fall, poor oral intake , tolerating meds Internal Medicine Objective - Results Result Diagrams: 10/05/18 15:00 10/05/18 15:00 Recent Labs: Laboratory Last Values WBC 14.4 Th/cmm (4.8-10.8) H 10/05/18 15:00 RBC 5.01 Mil/cmm (3.80-5.20) 10/05/18 15:00 Hgb 15.8 gm/dL (12-16) 10/05/18 15:00 Hct 46.8 % (41.0-60) 10/05/18 15:00 MCV 93.5 fl (81-100) 10/05/18 15:00 MCH 31.5 pg (27.0-31.0) H 10/05/18 15:00 MCHC Differential 33.7 pg (28.0-36.0) 10/05/18 15:00 RDW 13.2 % (11.5-20.0) 10/05/18 15:00 Plt Count 262 Th/cmm (150-400) 10/05/18 15:00 MPV 8.2 fl 10/05/18 15:00 Add Manual Diff YES 10/05/18 15:00 Band Neutrophils % 0 % (0-10) 10/05/18 15:00 Neutrophils (Manual) 88 % (40-80) H 10/05/18 15:00 Lymphocytes 6 % (20-50) L 10/05/18 15:00 Monocytes 6 % (2-10) 10/05/18 15:00 Eosinophils 0 % (0-5) 10/05/18 15:00 Basophils 0 % (0-3) 10/05/18 15:00 Sodium 151 mEq/L (136-145) H 10/05/18 15:00 Potassium 3.7 mEq/L (3.5-5.1) 10/05/18 15:00 Chloride 116 mEq/L (98-107) H 10/05/18 15:00 Carbon Dioxide 23.3 mEq/L (21.0-31.0) 10/05/18 15:00 Anion Gap 15.4 (7.0-16.0) 10/05/18 15:00 BUN 53 mg/dL (7-25) H 10/05/18 15:00 Creatinine 1.0 mg/dL (0.6-1.2) 10/05/18 15:00 Est GFR ( Amer) > 60.0 ml/min (>90) 10/05/18 15:00 Est GFR (Non-Af Amer) 58.4 ml/min 10/05/18 15:00 BUN/Creatinine Ratio 53.0 10/05/18 15:00 Glucose 129 mg/dL (70-105) H 10/05/18 15:00 Calcium 12.3 mg/dL (8.6-10.3) H 10/05/18 15:00 Total Bilirubin 1.4 mg/dL (0.3-1.0) H 10/05/18 15:00 AST 40 U/L (13-39) H 10/05/18 15:00 ALT < 3 U/L (7-52) L 10/05/18 15:00 Alkaline Phosphatase 116 U/L (34-104) H 10/05/18 15:00 Total Protein 7.9 gm/dL (6.0-8.3) 10/05/18 15:00 Albumin 4.5 gm/dL (3.7-5.3) 10/05/18 15:00 Globulin 3.4 gm/dL 10/05/18 15:00 Albumin/Globulin Ratio 1.3 (1.0-1.8) 10/05/18 15:00 Triglycerides 70 mg/dL (<150) 10/03/18 05:50 Cholesterol 205 mg/dL (<200) H 10/03/18 05:50 LDL Cholesterol Direct 163 mg/dL (75-193) 10/03/18 05:50 HDL Cholesterol 38 mg/dL (23-92) 10/03/18 05:50 TSH 0.64 uIU/ml (0.34-5.60) 10/05/18 15:00 Urine Source CATH 10/06/18 05:50 Urine Color BROWN 10/06/18 05:50 Urine Clarity HAZY (CLEAR) 10/06/18 05:50 Urine pH 6.0 (4.6 - 8.0) 10/06/18 05:50 Ur Specific [place] >= 1.030 (1.005-1.030) 10/06/18 05:50 Urine Protein 100 mg/dL (NEGATIVE) H 10/06/18 05:50 Urine Glucose (UA) NEGATIVE mg/dL (NEGATIVE) 10/06/18 05:50 Urine Ketones TRACE mg/dL (NEGATIVE) 10/06/18 05:50 Urine Blood LARGE (NEGATIVE) H 10/06/18 05:50 Urine Nitrate NEGATIVE (NEGATIVE) 10/06/18 05:50 Urine Bilirubin SMALL (NEGATIVE) H 10/06/18 05:50 Urine Urobilinogen 0.2 E.U./dL (0.2 - 1.0) 10/06/18 05:50 Ur Leukocyte Esterase TRACE (NEGATIVE) H 10/06/18 05:50 Urine RBC 25-50 /hpf (0-5) H 10/06/18 05:50 Urine WBC 6-10 /hpf (0-5) H 10/06/18 05:50 Ur Epithelial Cells OCCASIONAL /lpf (FEW) 10/06/18 05:50 Urine Bacteria FEW /hpf (NONE SEEN) 10/06/18 05:50 - Physical Exam Vitals and I&O: Vital Signs Temp 98.7 F 10/12/18 21:17 Pulse 72 10/12/18 21:17 Resp 18 10/12/18 21:17 BP 100/70 10/12/18 21:17 Pulse Ox 95 10/12/18 21:17 Intake & Output 10/12/18 10/13/18 10/13/18 18:59 06:59 18:59 Intake Total 12 Balance 12 Intake: Oral 12 Other: # Voids 3 2 # Bowel Movements 0 1 Active Medications: Current Medications Amantadine HCl (Symmetrel) 100 mg PO BID [facility] Stop: 12/03/18 16:59 Last Admin: 10/13/18 09:00 Dose: 100 mg Carbidopa/Levodopa (Sinemet 25mg-100 Mg) 2 tab PO TID [facility] Stop: 12/02/18 08:59 Last Admin: 10/13/18 09:00 Dose: 2 tab Docusate Sodium (Colace) 250 mg PO DAILY [facility] Stop: 12/02/18 08:59 Last Admin: 10/13/18 09:00 Dose: 250 mg Megestrol Acetate (Megace) 400 mg PO BID [facility]; Protocol Stop: 12/04/18 16:59 Last Admin: 10/13/18 09:00 Dose: 400 mg Mirtazapine (Remeron) 15 mg PO HS KATYA; Protocol Stop: 12/02/18 20:59 Last Admin: 10/12/18 20:17 Dose: 15 mg Quetiapine Fumarate (Seroquel) 50 mg PO BID KATYA; Protocol Stop: 12/02/18 08:59 Last Admin: 10/13/18 09:00 Dose: 50 mg General: demented HEENT: NC/AT, PERRLA, EOMI Neck: Supple, No JVD Lungs: CTAB Cardiovascular: RRR, Normal S1, Normal S2, with murmur Abdomen: soft, thin, non-distended, positive bowel sound Extremities: excoriation, contracture Internal Medicine Assmt/Plan - Assessment Assessment: ASSESSMENT AND PLAN: 1. Parkinson's disorder. 2. Hypertension. 3. Hyperparathyroidism. 4. History of endometrial cancer. 5. Hypercholesterolemia. uti hematuria - Plan Plan: PLAN: Poor p.o. intake. We will add Ensure. We will do calorie count. We will check UA and C and S and chest x-ray if not done. We are looking for results of the lab test done from outside hospital. We will continue monitor the patient closely. start on bactrim will refer to PT tiffany rn Nutritional Asmnt/Malnutr-PDOC - Dietary Evaluation Malnutrition Findings (Please click <Entered> for more info): Nutritional Asmnt/Malnutrition Start: 10/07/18 11: 25 Text: Status: Complete Freq: Protocol: Document 10/07/18 11:26 KATHY (Rec: 10/07/18 11:31 KATHY [email or web address]) Nutritional Asmnt/Malnutrition Patient General Information Nutritional Screening Moderate Risk Diagnosis PSYCHOSIS Pertinent Medical Hx/Surgical Hx PARKINSONS, HTN, HYPERTHYROIDISM, ENDOMETRIAL CANCER Subjective Information PT IS A 68 YEAR OLD FEMALE FROM NURSING FACILITY ADMITTED ON 10/03 D/T PSYCHOSIS. ENSURE ENLIVE TID ADDED TO PTS DIET PER MD ORDER (10/05). PT IS ON MEGACE, CURRENTLY PO INTAKE IS AN ESTIMATED 50% X3 DAYS. NOTED WILLAM TEMPORAL WASTING ON H&P REPORT. HT: 55 WT: 185 LB (84.09 KG) ABW: 140 LB (63.64 KG) BMI: 30.85 (OBESE) GI: WNL, SOFT, NON-TENDER BM: NOT NOTED I/O: 120/NOT NOTED SKIN: WNL, INTACT JAMIE: 17 DIET ORDER: MECHANICAL SOFT, NA2GM ESTIMATED ENERGY NEEDS: ( GERIATRIC, ABW) 1375-6686 KCALS (25-30 KCALS/ KG) 63-76 G PRO (1.0-1.2 G/KG) 1725-3584 ML (25-30 ML/KG) PT PO INTAKE: ESTIMATED 50% MEALS X 3 DAYS, PER MEAL/ NUTRITION ACTIVITY RECORD. DIETARY IS CURRENTLY PROVIDING AN ESTIMATED 2300 KCALS AND 106 GM PRO. PER PT PO INTAKE, THIS IS PROVIDING AN ESTIMATED 1150 KCALS AND 53 GM PRO, TO MEET 72% KCAL AND 84% PRO NEEDS. Current Diet Order/ Nutrition Support MECHANICAL SOFT, NA2GM Pertinent Medications COLACE, MEGACE Pertinent Labs 10/05: NA 151, BUN/CR 53/1.0, GLUCOSE 129, CA 12.3, T BILI 1 .4, AST 40, ALT <3, ALH PHOS 116 Nutritional Hx/Data Height 1.65 m Height (Calculated Centimeters) 165.1 Current Weight (lbs) 83.915 kg Weight (Calculated Kilograms) 83.9 Weight (Calculated Grams) 37699.6 [place] Body Weight 125 % [place] Body Weight 148 Body Mass Index (BMI) 30.7 Weight Status Obese GI Symptoms GI Symptoms None Last BM NOT NOTED Skin Integrity/Comment: WNL, INTACT JAMIE: 17 Current %PO Fair (50-74%) Estimated Nutritional Goals BEE in Kcals: Adj wt of IBW Calories/Kcals/Kg 25-30 Kcals Calculated 4848-2587 Protein: Adj wt of IBW Protein g/k.0-1.2 Protein Calculated 63-76 Fluid: ml 9223-5012 ML (25-30 ML/KG) Nutritional Problem 1. Problem Problem ALTERED NUTRITION RELATED LABS Etiology R/T PATHOPHYSIOLOGICAL CAUSES Signs/Symptoms: AEB GLUCOSE 129, NA 151, BUN/ CR 53/1.0, CA 12.3 Malnutrition Related to Morbid Obesity Malnutrition related to morbid obesity No Intervention/Recommendation Comments 1. CONTINUE WITH MECHANICAL SOFT, NA2GM DIET ORDERED. 2. ADD NUTRITIONAL SUPPLEMENT TID (COMPLETED). Expected Outcomes/Goals Expected Outcomes/Goals 1. PO INTAKE TO MEET 75% OF NUTRITIONAL NEEDS. 2. NUTRITION RELATED LABS TO TREND WNL IN 3-5 DAYS. 3. MONITOR PO INTAKE, WT, NUTRITION RELATED LABS AND SKIN INTEGRITY. 4. F/U MODERATE RISK IN 3-5 DAYS, 10/10-10/12
--- NOTE | 2018-10-14 12:55 | Internal Medicine Prog Note ---
Internal Medicine Subjective - Subjective Patient seen and examined:: with staff, chart reviewed Patient is:: awake, non-verbal, non-interactive Per staff patient has:: no adverse event, no episodes of fall, poor oral intake , tolerating meds Internal Medicine Objective - Results Result Diagrams: 10/05/18 15:00 10/05/18 15:00 Recent Labs: Laboratory Last Values WBC 14.4 Th/cmm (4.8-10.8) H 10/05/18 15:00 RBC 5.01 Mil/cmm (3.80-5.20) 10/05/18 15:00 Hgb 15.8 gm/dL (12-16) 10/05/18 15:00 Hct 46.8 % (41.0-60) 10/05/18 15:00 MCV 93.5 fl (81-100) 10/05/18 15:00 MCH 31.5 pg (27.0-31.0) H 10/05/18 15:00 MCHC Differential 33.7 pg (28.0-36.0) 10/05/18 15:00 RDW 13.2 % (11.5-20.0) 10/05/18 15:00 Plt Count 262 Th/cmm (150-400) 10/05/18 15:00 MPV 8.2 fl 10/05/18 15:00 Add Manual Diff YES 10/05/18 15:00 Band Neutrophils % 0 % (0-10) 10/05/18 15:00 Neutrophils (Manual) 88 % (40-80) H 10/05/18 15:00 Lymphocytes 6 % (20-50) L 10/05/18 15:00 Monocytes 6 % (2-10) 10/05/18 15:00 Eosinophils 0 % (0-5) 10/05/18 15:00 Basophils 0 % (0-3) 10/05/18 15:00 Sodium 151 mEq/L (136-145) H 10/05/18 15:00 Potassium 3.7 mEq/L (3.5-5.1) 10/05/18 15:00 Chloride 116 mEq/L (98-107) H 10/05/18 15:00 Carbon Dioxide 23.3 mEq/L (21.0-31.0) 10/05/18 15:00 Anion Gap 15.4 (7.0-16.0) 10/05/18 15:00 BUN 53 mg/dL (7-25) H 10/05/18 15:00 Creatinine 1.0 mg/dL (0.6-1.2) 10/05/18 15:00 Est GFR ( Amer) > 60.0 ml/min (>90) 10/05/18 15:00 Est GFR (Non-Af Amer) 58.4 ml/min 10/05/18 15:00 BUN/Creatinine Ratio 53.0 10/05/18 15:00 Glucose 129 mg/dL (70-105) H 10/05/18 15:00 Calcium 12.3 mg/dL (8.6-10.3) H 10/05/18 15:00 Total Bilirubin 1.4 mg/dL (0.3-1.0) H 10/05/18 15:00 AST 40 U/L (13-39) H 10/05/18 15:00 ALT < 3 U/L (7-52) L 10/05/18 15:00 Alkaline Phosphatase 116 U/L (34-104) H 10/05/18 15:00 Total Protein 7.9 gm/dL (6.0-8.3) 10/05/18 15:00 Albumin 4.5 gm/dL (3.7-5.3) 10/05/18 15:00 Globulin 3.4 gm/dL 10/05/18 15:00 Albumin/Globulin Ratio 1.3 (1.0-1.8) 10/05/18 15:00 Triglycerides 70 mg/dL (<150) 10/03/18 05:50 Cholesterol 205 mg/dL (<200) H 10/03/18 05:50 LDL Cholesterol Direct 163 mg/dL (75-193) 10/03/18 05:50 HDL Cholesterol 38 mg/dL (23-92) 10/03/18 05:50 TSH 0.64 uIU/ml (0.34-5.60) 10/05/18 15:00 Urine Source CATH 10/06/18 05:50 Urine Color BROWN 10/06/18 05:50 Urine Clarity HAZY (CLEAR) 10/06/18 05:50 Urine pH 6.0 (4.6 - 8.0) 10/06/18 05:50 Ur Specific [place] >= 1.030 (1.005-1.030) 10/06/18 05:50 Urine Protein 100 mg/dL (NEGATIVE) H 10/06/18 05:50 Urine Glucose (UA) NEGATIVE mg/dL (NEGATIVE) 10/06/18 05:50 Urine Ketones TRACE mg/dL (NEGATIVE) 10/06/18 05:50 Urine Blood LARGE (NEGATIVE) H 10/06/18 05:50 Urine Nitrate NEGATIVE (NEGATIVE) 10/06/18 05:50 Urine Bilirubin SMALL (NEGATIVE) H 10/06/18 05:50 Urine Urobilinogen 0.2 E.U./dL (0.2 - 1.0) 10/06/18 05:50 Ur Leukocyte Esterase TRACE (NEGATIVE) H 10/06/18 05:50 Urine RBC 25-50 /hpf (0-5) H 10/06/18 05:50 Urine WBC 6-10 /hpf (0-5) H 10/06/18 05:50 Ur Epithelial Cells OCCASIONAL /lpf (FEW) 10/06/18 05:50 Urine Bacteria FEW /hpf (NONE SEEN) 10/06/18 05:50 - Physical Exam Vitals and I&O: Vital Signs Temp 98.9 F 10/14/18 06:20 Pulse 75 10/14/18 06:20 Resp 18 10/14/18 06:20 BP 143/84 10/14/18 06:20 Pulse Ox 96 10/14/18 06:20 Intake & Output 10/13/18 10/14/18 10/14/18 18:59 06:59 18:59 Intake Total 120 Balance 120 Intake: Oral 120 Other: # Voids 3 # Bowel Movements 0 Active Medications: Current Medications Amantadine HCl (Symmetrel) 100 mg PO BID [facility] Stop: 12/03/18 16:59 Last Admin: 10/14/18 08:15 Dose: 100 mg Carbidopa/Levodopa (Sinemet 25mg-100 Mg) 2 tab PO TID KATYA Stop: 12/02/18 08:59 Last Admin: 10/14/18 08:15 Dose: 2 tab Docusate Sodium (Colace) 250 mg PO DAILY [facility] Stop: 12/02/18 08:59 Last Admin: 10/14/18 08:15 Dose: 250 mg Megestrol Acetate (Megace) 400 mg PO BID [facility]; Protocol Stop: 12/04/18 16:59 Last Admin: 10/14/18 08:15 Dose: 400 mg Mirtazapine (Remeron) 15 mg PO HS KATYA; Protocol Stop: 12/02/18 20:59 Last Admin: 10/13/18 20:39 Dose: 15 mg Quetiapine Fumarate (Seroquel) 50 mg PO BID KATYA; Protocol Stop: 12/02/18 08:59 Last Admin: 10/14/18 08:15 Dose: 50 mg General: demented HEENT: NC/AT, PERRLA, EOMI Neck: Supple, No JVD Lungs: CTAB Cardiovascular: RRR, Normal S1, Normal S2, with murmur Abdomen: soft, thin, non-distended, positive bowel sound Extremities: excoriation, contracture Internal Medicine Assmt/Plan - Assessment Assessment: ASSESSMENT AND PLAN: 1. Parkinson's disorder. 2. Hypertension. 3. Hyperparathyroidism. 4. History of endometrial cancer. 5. Hypercholesterolemia. uti hematuria - Plan Plan: PLAN: Poor p.o. intake. We will add Ensure. We will do calorie count. We will check UA and C and S and chest x-ray if not done. We are looking for results of the lab test done from outside hospital. We will continue monitor the patient closely. start on bactrim will refer to PT tiffany rn Nutritional Asmnt/Malnutr-PDOC - Dietary Evaluation Malnutrition Findings (Please click <Entered> for more info): Nutritional Asmnt/Malnutrition Start: 10/07/18 11: 25 Text: Status: Complete Freq: Protocol: Document 10/07/18 11:26 KATHY (Rec: 10/07/18 11:31 KATHY [email or web address]) Nutritional Asmnt/Malnutrition Patient General Information Nutritional Screening Moderate Risk Diagnosis PSYCHOSIS Pertinent Medical Hx/Surgical Hx PARKINSONS, HTN, HYPERTHYROIDISM, ENDOMETRIAL CANCER Subjective Information PT IS A 68 YEAR OLD FEMALE FROM NURSING FACILITY ADMITTED ON 10/03 D/T PSYCHOSIS. ENSURE ENLIVE TID ADDED TO PTS DIET PER MD ORDER (10/05). PT IS ON MEGACE, CURRENTLY PO INTAKE IS AN ESTIMATED 50% X3 DAYS. NOTED WILLAM TEMPORAL WASTING ON H&P REPORT. HT: 55 WT: 185 LB (84.09 KG) ABW: 140 LB (63.64 KG) BMI: 30.85 (OBESE) GI: WNL, SOFT, NON-TENDER BM: NOT NOTED I/O: 120/NOT NOTED SKIN: WNL, INTACT JAMIE: 17 DIET ORDER: MECHANICAL SOFT, NA2GM ESTIMATED ENERGY NEEDS: ( GERIATRIC, ABW) 4983-1745 KCALS (25-30 KCALS/ KG) 63-76 G PRO (1.0-1.2 G/KG) 2716-5296 ML (25-30 ML/KG) PT PO INTAKE: ESTIMATED 50% MEALS X 3 DAYS, PER MEAL/ NUTRITION ACTIVITY RECORD. DIETARY IS CURRENTLY PROVIDING AN ESTIMATED 2300 KCALS AND 106 GM PRO. PER PT PO INTAKE, THIS IS PROVIDING AN ESTIMATED 1150 KCALS AND 53 GM PRO, TO MEET 72% KCAL AND 84% PRO NEEDS. Current Diet Order/ Nutrition Support MECHANICAL SOFT, NA2GM Pertinent Medications COLACE, MEGACE Pertinent Labs 10/05: NA 151, BUN/CR 53/1.0, GLUCOSE 129, CA 12.3, T BILI 1 .4, AST 40, ALT <3, ALH PHOS 116 Nutritional Hx/Data Height 1.65 m Height (Calculated Centimeters) 165.1 Current Weight (lbs) 83.915 kg Weight (Calculated Kilograms) 83.9 Weight (Calculated Grams) 36697.6 [place] Body Weight 125 % [place] Body Weight 148 Body Mass Index (BMI) 30.7 Weight Status Obese GI Symptoms GI Symptoms None Last BM NOT NOTED Skin Integrity/Comment: WNL, INTACT JAMIE: 17 Current %PO Fair (50-74%) Estimated Nutritional Goals BEE in Kcals: Adj wt of IBW Calories/Kcals/Kg 25-30 Kcals Calculated 6255-2455 Protein: Adj wt of IBW Protein g/k.0-1.2 Protein Calculated 63-76 Fluid: ml 2283-2053 ML (25-30 ML/KG) Nutritional Problem 1. Problem Problem ALTERED NUTRITION RELATED LABS Etiology R/T PATHOPHYSIOLOGICAL CAUSES Signs/Symptoms: AEB GLUCOSE 129, NA 151, BUN/ CR 53/1.0, CA 12.3 Malnutrition Related to Morbid Obesity Malnutrition related to morbid obesity No Intervention/Recommendation Comments 1. CONTINUE WITH MECHANICAL SOFT, NA2GM DIET ORDERED. 2. ADD NUTRITIONAL SUPPLEMENT TID (COMPLETED). Expected Outcomes/Goals Expected Outcomes/Goals 1. PO INTAKE TO MEET 75% OF NUTRITIONAL NEEDS. 2. NUTRITION RELATED LABS TO TREND WNL IN 3-5 DAYS. 3. MONITOR PO INTAKE, WT, NUTRITION RELATED LABS AND SKIN INTEGRITY. 4. F/U MODERATE RISK IN 3-5 DAYS, 10/10-10/12
--- NOTE | 2018-10-14 17:50 | Progress Notes ---
DATE: 10/13/2018 SUBJECTIVE: The patient is calm, less yelling episodes, more cooperative, likely approaching her baseline. We will plan to discharge her tomorrow. Monitor for further 24 hours. Sleeping fairly well, eating well, less crying episodes, tolerant of Nuedexta, vitals were noted, remains confused, disoriented, but likely this is not going to change, no agitation, no aggressive behaviors. [facility]# [id number]
--- NOTE | 2018-10-14 22:39 | Progress Notes ---
DATE: 10/14/2018 The patient remains confused, disoriented, much less screaming and yelling episodes. We were not able to get her to her board and care at this time. She is currently gravely disabled, cannot take care of herself. They are not willing to accept her until she is able to bathroom on her own and walk more, so we are trying to get her to participate in physical therapy, ongoing yelling episodes, screaming episodes, but less. Seems to be doing fairly well on the current medication regimen Seroquel, Remeron. The patient generally calmer, but she is pretty weak, unsteady gait, working with physical therapy, no longer talking about giants chasing her. We will continue to monitor, work on the patient's gait, work on physical therapy. JOB# [id number]
--- NOTE | 2018-10-15 13:21 | Internal Medicine Prog Note ---
Internal Medicine Subjective - Subjective Patient seen and examined:: with staff, chart reviewed Patient is:: awake, non-verbal, non-interactive Per staff patient has:: no adverse event, no episodes of fall, poor oral intake , tolerating meds Internal Medicine Objective - Results Result Diagrams: 10/05/18 15:00 10/05/18 15:00 Recent Labs: Laboratory Last Values WBC 14.4 Th/cmm (4.8-10.8) H 10/05/18 15:00 RBC 5.01 Mil/cmm (3.80-5.20) 10/05/18 15:00 Hgb 15.8 gm/dL (12-16) 10/05/18 15:00 Hct 46.8 % (41.0-60) 10/05/18 15:00 MCV 93.5 fl (81-100) 10/05/18 15:00 MCH 31.5 pg (27.0-31.0) H 10/05/18 15:00 MCHC Differential 33.7 pg (28.0-36.0) 10/05/18 15:00 RDW 13.2 % (11.5-20.0) 10/05/18 15:00 Plt Count 262 Th/cmm (150-400) 10/05/18 15:00 MPV 8.2 fl 10/05/18 15:00 Add Manual Diff YES 10/05/18 15:00 Band Neutrophils % 0 % (0-10) 10/05/18 15:00 Neutrophils (Manual) 88 % (40-80) H 10/05/18 15:00 Lymphocytes 6 % (20-50) L 10/05/18 15:00 Monocytes 6 % (2-10) 10/05/18 15:00 Eosinophils 0 % (0-5) 10/05/18 15:00 Basophils 0 % (0-3) 10/05/18 15:00 Sodium 151 mEq/L (136-145) H 10/05/18 15:00 Potassium 3.7 mEq/L (3.5-5.1) 10/05/18 15:00 Chloride 116 mEq/L (98-107) H 10/05/18 15:00 Carbon Dioxide 23.3 mEq/L (21.0-31.0) 10/05/18 15:00 Anion Gap 15.4 (7.0-16.0) 10/05/18 15:00 BUN 53 mg/dL (7-25) H 10/05/18 15:00 Creatinine 1.0 mg/dL (0.6-1.2) 10/05/18 15:00 Est GFR ( Amer) > 60.0 ml/min (>90) 10/05/18 15:00 Est GFR (Non-Af Amer) 58.4 ml/min 10/05/18 15:00 BUN/Creatinine Ratio 53.0 10/05/18 15:00 Glucose 129 mg/dL (70-105) H 10/05/18 15:00 Calcium 12.3 mg/dL (8.6-10.3) H 10/05/18 15:00 Total Bilirubin 1.4 mg/dL (0.3-1.0) H 10/05/18 15:00 AST 40 U/L (13-39) H 10/05/18 15:00 ALT < 3 U/L (7-52) L 10/05/18 15:00 Alkaline Phosphatase 116 U/L (34-104) H 10/05/18 15:00 Total Protein 7.9 gm/dL (6.0-8.3) 10/05/18 15:00 Albumin 4.5 gm/dL (3.7-5.3) 10/05/18 15:00 Globulin 3.4 gm/dL 10/05/18 15:00 Albumin/Globulin Ratio 1.3 (1.0-1.8) 10/05/18 15:00 Triglycerides 70 mg/dL (<150) 10/03/18 05:50 Cholesterol 205 mg/dL (<200) H 10/03/18 05:50 LDL Cholesterol Direct 163 mg/dL (75-193) 10/03/18 05:50 HDL Cholesterol 38 mg/dL (23-92) 10/03/18 05:50 TSH 0.64 uIU/ml (0.34-5.60) 10/05/18 15:00 Urine Source CATH 10/06/18 05:50 Urine Color BROWN 10/06/18 05:50 Urine Clarity HAZY (CLEAR) 10/06/18 05:50 Urine pH 6.0 (4.6 - 8.0) 10/06/18 05:50 Ur Specific [place] >= 1.030 (1.005-1.030) 10/06/18 05:50 Urine Protein 100 mg/dL (NEGATIVE) H 10/06/18 05:50 Urine Glucose (UA) NEGATIVE mg/dL (NEGATIVE) 10/06/18 05:50 Urine Ketones TRACE mg/dL (NEGATIVE) 10/06/18 05:50 Urine Blood LARGE (NEGATIVE) H 10/06/18 05:50 Urine Nitrate NEGATIVE (NEGATIVE) 10/06/18 05:50 Urine Bilirubin SMALL (NEGATIVE) H 10/06/18 05:50 Urine Urobilinogen 0.2 E.U./dL (0.2 - 1.0) 10/06/18 05:50 Ur Leukocyte Esterase TRACE (NEGATIVE) H 10/06/18 05:50 Urine RBC 25-50 /hpf (0-5) H 10/06/18 05:50 Urine WBC 6-10 /hpf (0-5) H 10/06/18 05:50 Ur Epithelial Cells OCCASIONAL /lpf (FEW) 10/06/18 05:50 Urine Bacteria FEW /hpf (NONE SEEN) 10/06/18 05:50 - Physical Exam Vitals and I&O: Vital Signs Temp 97.7 F 10/15/18 06:30 Pulse 70 10/15/18 06:30 Resp 20 10/15/18 06:30 BP 157/87 10/15/18 06:30 Pulse Ox 97 10/15/18 06:30 Intake & Output 10/14/18 10/15/18 10/15/18 18:59 06:59 18:59 Intake Total 800 240 Balance 800 240 Intake: Oral 800 240 Other: # Voids 3 3 # Bowel Movements 1 0 Active Medications: Current Medications Amantadine HCl (Symmetrel) 100 mg PO BID [facility] Stop: 12/03/18 16:59 Last Admin: 10/15/18 08:58 Dose: 100 mg Carbidopa/Levodopa (Sinemet 25mg-100 Mg) 2 tab PO TID [facility]ATYA Stop: 12/02/18 08:59 Last Admin: 10/15/18 08:58 Dose: 2 tab Docusate Sodium (Colace) 250 mg PO DAILY [facility] Stop: 12/02/18 08:59 Last Admin: 10/15/18 08:58 Dose: 250 mg Megestrol Acetate (Megace) 400 mg PO BID [facility]YA; Protocol Stop: 12/04/18 16:59 Last Admin: 10/15/18 08:58 Dose: 400 mg Mirtazapine (Remeron) 15 mg PO HS KATYA; Protocol Stop: 12/02/18 20:59 Last Admin: 10/14/18 20:48 Dose: 15 mg Quetiapine Fumarate (Seroquel) 50 mg PO BID [facility]ATYA; Protocol Stop: 12/02/18 08:59 Last Admin: 10/15/18 08:59 Dose: 50 mg General: demented HEENT: NC/AT, PERRLA, EOMI Neck: Supple, No JVD Lungs: CTAB Cardiovascular: RRR, Normal S1, Normal S2, with murmur Abdomen: soft, thin, non-distended, positive bowel sound Extremities: excoriation, contracture Internal Medicine Assmt/Plan - Assessment Assessment: ASSESSMENT AND PLAN: 1. Parkinson's disorder. 2. Hypertension. 3. Hyperparathyroidism. 4. History of endometrial cancer. 5. Hypercholesterolemia. uti hematuria - Plan Plan: PLAN: Poor p.o. intake. We will add Ensure. We will do calorie count. We will check UA and C and S and chest x-ray if not done. We are looking for results of the lab test done from outside hospital. We will continue monitor the patient closely. start on bactrim will refer to PT tiffany rn Nutritional Asmnt/Malnutr-PDOC - Dietary Evaluation Malnutrition Findings (Please click <Entered> for more info): Nutritional Asmnt/Malnutrition Start: 10/07/18 11: 25 Text: Status: Complete Freq: Protocol: Document 10/07/18 11:26 KATHY (Rec: 10/07/18 11:31 KATHY [email or web address]) Nutritional Asmnt/Malnutrition Patient General Information Nutritional Screening Moderate Risk Diagnosis PSYCHOSIS Pertinent Medical Hx/Surgical Hx PARKINSONS, HTN, HYPERTHYROIDISM, ENDOMETRIAL CANCER Subjective Information PT IS A 68 YEAR OLD FEMALE FROM NURSING FACILITY ADMITTED ON 10/03 D/T PSYCHOSIS. ENSURE ENLIVE TID ADDED TO PTS DIET PER MD ORDER (10/05). PT IS ON MEGACE, CURRENTLY PO INTAKE IS AN ESTIMATED 50% X3 DAYS. NOTED WILLAM TEMPORAL WASTING ON H&P REPORT. HT: 55 WT: 185 LB (84.09 KG) ABW: 140 LB (63.64 KG) BMI: 30.85 (OBESE) GI: WNL, SOFT, NON-TENDER BM: NOT NOTED I/O: 120/NOT NOTED SKIN: WNL, INTACT JAMIE: 17 DIET ORDER: MECHANICAL SOFT, NA2GM ESTIMATED ENERGY NEEDS: ( GERIATRIC, ABW) [id number] KCALS (25-30 KCALS/ KG) 63-76 G PRO (1.0-1.2 G/KG) 0237-7262 ML (25-30 ML/KG) PT PO INTAKE: ESTIMATED 50% MEALS X 3 DAYS, PER MEAL/ NUTRITION ACTIVITY RECORD. DIETARY IS CURRENTLY PROVIDING AN ESTIMATED 2300 KCALS AND 106 GM PRO. PER PT PO INTAKE, THIS IS PROVIDING AN ESTIMATED 1150 KCALS AND 53 GM PRO, TO MEET 72% KCAL AND 84% PRO NEEDS. Current Diet Order/ Nutrition Support MECHANICAL SOFT, NA2GM Pertinent Medications COLACE, MEGACE Pertinent Labs 10/05: NA 151, BUN/CR 53/1.0, GLUCOSE 129, CA 12.3, T BILI 1 .4, AST 40, ALT <3, ALH PHOS 116 Nutritional Hx/Data Height 1.65 m Height (Calculated Centimeters) 165.1 Current Weight (lbs) 83.915 kg Weight (Calculated Kilograms) 83.9 Weight (Calculated Grams) 56494.6 [place] Body Weight 125 % [place] Body Weight 148 Body Mass Index (BMI) 30.7 Weight Status Obese GI Symptoms GI Symptoms None Last BM NOT NOTED Skin Integrity/Comment: WNL, INTACT JAMIE: 17 Current %PO Fair (50-74%) Estimated Nutritional Goals BEE in Kcals: Adj wt of IBW Calories/Kcals/Kg 25-30 Kcals Calculated 7006-9680 Protein: Adj wt of IBW Protein g/k.0-1.2 Protein Calculated 63-76 Fluid: ml 1723-2709 ML (25-30 ML/KG) Nutritional Problem 1. Problem Problem ALTERED NUTRITION RELATED LABS Etiology R/T PATHOPHYSIOLOGICAL CAUSES Signs/Symptoms: AEB GLUCOSE 129, NA 151, BUN/ CR 53/1.0, CA 12.3 Malnutrition Related to Morbid Obesity Malnutrition related to morbid obesity No Intervention/Recommendation Comments 1. CONTINUE WITH MECHANICAL SOFT, NA2GM DIET ORDERED. 2. ADD NUTRITIONAL SUPPLEMENT TID (COMPLETED). Expected Outcomes/Goals Expected Outcomes/Goals 1. PO INTAKE TO MEET 75% OF NUTRITIONAL NEEDS. 2. NUTRITION RELATED LABS TO TREND WNL IN 3-5 DAYS. 3. MONITOR PO INTAKE, WT, NUTRITION RELATED LABS AND SKIN INTEGRITY. 4. F/U MODERATE RISK IN 3-5 DAYS, 10/10-10/12
--- NOTE | 2018-10-15 21:24 | Progress Notes ---
DATE: 10/15/2018 SUBJECTIVE: The patient in the hospital, mostly withdrawn, keeps to herself, generally calmer, more cooperative. She is not being accepted back to her board and care because she is not able to bathroom on her own completely and not able to walk on her own completely; therefore, she is gravely disabled, nowhere to go. We are trying to work on getting her walking and bathrooming on her own, cooperative, generally calm, going to physical therapy, eating well, sleeping well, but still with impoverished thought processes. PLAN: We will continue to monitor. JOB# [id number]
--- NOTE | 2018-10-16 08:47 | Internal Medicine Prog Note ---
Internal Medicine Subjective - Subjective Patient seen and examined:: with staff, chart reviewed Patient is:: awake, non-verbal, non-interactive Per staff patient has:: no adverse event, no episodes of fall, poor oral intake , tolerating meds Internal Medicine Objective - Results Result Diagrams: 10/05/18 15:00 10/05/18 15:00 Recent Labs: Laboratory Last Values WBC 14.4 Th/cmm (4.8-10.8) H 10/05/18 15:00 RBC 5.01 Mil/cmm (3.80-5.20) 10/05/18 15:00 Hgb 15.8 gm/dL (12-16) 10/05/18 15:00 Hct 46.8 % (41.0-60) 10/05/18 15:00 MCV 93.5 fl (81-100) 10/05/18 15:00 MCH 31.5 pg (27.0-31.0) H 10/05/18 15:00 MCHC Differential 33.7 pg (28.0-36.0) 10/05/18 15:00 RDW 13.2 % (11.5-20.0) 10/05/18 15:00 Plt Count 262 Th/cmm (150-400) 10/05/18 15:00 MPV 8.2 fl 10/05/18 15:00 Add Manual Diff YES 10/05/18 15:00 Band Neutrophils % 0 % (0-10) 10/05/18 15:00 Neutrophils (Manual) 88 % (40-80) H 10/05/18 15:00 Lymphocytes 6 % (20-50) L 10/05/18 15:00 Monocytes 6 % (2-10) 10/05/18 15:00 Eosinophils 0 % (0-5) 10/05/18 15:00 Basophils 0 % (0-3) 10/05/18 15:00 Sodium 151 mEq/L (136-145) H 10/05/18 15:00 Potassium 3.7 mEq/L (3.5-5.1) 10/05/18 15:00 Chloride 116 mEq/L (98-107) H 10/05/18 15:00 Carbon Dioxide 23.3 mEq/L (21.0-31.0) 10/05/18 15:00 Anion Gap 15.4 (7.0-16.0) 10/05/18 15:00 BUN 53 mg/dL (7-25) H 10/05/18 15:00 Creatinine 1.0 mg/dL (0.6-1.2) 10/05/18 15:00 Est GFR ( Amer) > 60.0 ml/min (>90) 10/05/18 15:00 Est GFR (Non-Af Amer) 58.4 ml/min 10/05/18 15:00 BUN/Creatinine Ratio 53.0 10/05/18 15:00 Glucose 129 mg/dL (70-105) H 10/05/18 15:00 Calcium 12.3 mg/dL (8.6-10.3) H 10/05/18 15:00 Total Bilirubin 1.4 mg/dL (0.3-1.0) H 10/05/18 15:00 AST 40 U/L (13-39) H 10/05/18 15:00 ALT < 3 U/L (7-52) L 10/05/18 15:00 Alkaline Phosphatase 116 U/L (34-104) H 10/05/18 15:00 Total Protein 7.9 gm/dL (6.0-8.3) 10/05/18 15:00 Albumin 4.5 gm/dL (3.7-5.3) 10/05/18 15:00 Globulin 3.4 gm/dL 10/05/18 15:00 Albumin/Globulin Ratio 1.3 (1.0-1.8) 10/05/18 15:00 Triglycerides 70 mg/dL (<150) 10/03/18 05:50 Cholesterol 205 mg/dL (<200) H 10/03/18 05:50 LDL Cholesterol Direct 163 mg/dL (75-193) 10/03/18 05:50 HDL Cholesterol 38 mg/dL (23-92) 10/03/18 05:50 TSH 0.64 uIU/ml (0.34-5.60) 10/05/18 15:00 Urine Source CATH 10/06/18 05:50 Urine Color BROWN 10/06/18 05:50 Urine Clarity HAZY (CLEAR) 10/06/18 05:50 Urine pH 6.0 (4.6 - 8.0) 10/06/18 05:50 Ur Specific [place] >= 1.030 (1.005-1.030) 10/06/18 05:50 Urine Protein 100 mg/dL (NEGATIVE) H 10/06/18 05:50 Urine Glucose (UA) NEGATIVE mg/dL (NEGATIVE) 10/06/18 05:50 Urine Ketones TRACE mg/dL (NEGATIVE) 10/06/18 05:50 Urine Blood LARGE (NEGATIVE) H 10/06/18 05:50 Urine Nitrate NEGATIVE (NEGATIVE) 10/06/18 05:50 Urine Bilirubin SMALL (NEGATIVE) H 10/06/18 05:50 Urine Urobilinogen 0.2 E.U./dL (0.2 - 1.0) 10/06/18 05:50 Ur Leukocyte Esterase TRACE (NEGATIVE) H 10/06/18 05:50 Urine RBC 25-50 /hpf (0-5) H 10/06/18 05:50 Urine WBC 6-10 /hpf (0-5) H 10/06/18 05:50 Ur Epithelial Cells OCCASIONAL /lpf (FEW) 10/06/18 05:50 Urine Bacteria FEW /hpf (NONE SEEN) 10/06/18 05:50 - Physical Exam Vitals and I&O: Vital Signs Temp 99.5 F 10/16/18 06:27 Pulse 68 10/16/18 06:27 Resp 19 10/16/18 06:27 BP 142/83 10/16/18 06:27 Pulse Ox 93 10/16/18 06:27 Intake & Output 10/15/18 10/16/18 10/16/18 18:59 06:59 18:59 Intake Total 900 600 Balance 900 600 Intake: Oral 900 600 Other: # Voids 3 3 # Bowel Movements 1 0 Active Medications: Current Medications Amantadine HCl (Symmetrel) 100 mg PO BID [facility] Stop: 12/03/18 16:59 Last Admin: 10/15/18 16:55 Dose: 100 mg Carbidopa/Levodopa (Sinemet 25mg-100 Mg) 2 tab PO TID KATYA Stop: 12/02/18 08:59 Last Admin: 10/15/18 20:26 Dose: 2 tab Docusate Sodium (Colace) 250 mg PO DAILY KATYA Stop: 12/02/18 08:59 Last Admin: 10/15/18 08:58 Dose: 250 mg Megestrol Acetate (Megace) 400 mg PO BID KATYA; Protocol Stop: 12/04/18 16:59 Last Admin: 10/15/18 16:55 Dose: 400 mg Mirtazapine (Remeron) 15 mg PO HS KATYA; Protocol Stop: 12/02/18 20:59 Last Admin: 10/15/18 20:27 Dose: 15 mg Quetiapine Fumarate (Seroquel) 50 mg PO BID KATYA; Protocol Stop: 12/02/18 08:59 Last Admin: 10/15/18 16:55 Dose: 50 mg General: demented HEENT: NC/AT, PERRLA, EOMI Neck: Supple, No JVD Lungs: CTAB Cardiovascular: RRR, Normal S1, Normal S2, with murmur Abdomen: soft, thin, non-distended, positive bowel sound Extremities: excoriation, contracture Internal Medicine Assmt/Plan - Assessment Assessment: ASSESSMENT AND PLAN: 1. Parkinson's disorder. 2. Hypertension. 3. Hyperparathyroidism. 4. History of endometrial cancer. 5. Hypercholesterolemia. uti hematuria - Plan Plan: PLAN: Poor p.o. intake. We will add Ensure. We will do calorie count. We will check UA and C and S and chest x-ray if not done. We are looking for results of the lab test done from outside hospital. We will continue monitor the patient closely. start on bactrim will refer to PT tiffany rn Nutritional Asmnt/Malnutr-PDOC - Dietary Evaluation Malnutrition Findings (Please click <Entered> for more info): Nutritional Asmnt/Malnutrition Start: 10/07/18 11: 25 Text: Status: Complete Freq: Protocol: Document 10/07/18 11:26 KATHY (Rec: 10/07/18 11:31 KATHY [email or web address]) Nutritional Asmnt/Malnutrition Patient General Information Nutritional Screening Moderate Risk Diagnosis PSYCHOSIS Pertinent Medical Hx/Surgical Hx PARKINSONS, HTN, HYPERTHYROIDISM, ENDOMETRIAL CANCER Subjective Information PT IS A 68 YEAR OLD FEMALE FROM NURSING FACILITY ADMITTED ON 10/03 D/T PSYCHOSIS. ENSURE ENLIVE TID ADDED TO PTS DIET PER MD ORDER (10/05). PT IS ON MEGACE, CURRENTLY PO INTAKE IS AN ESTIMATED 50% X3 DAYS. NOTED WILLAM TEMPORAL WASTING ON H&P REPORT. HT: 55 WT: 185 LB (84.09 KG) ABW: 140 LB (63.64 KG) BMI: 30.85 (OBESE) GI: WNL, SOFT, NON-TENDER BM: NOT NOTED I/O: 120/NOT NOTED SKIN: WNL, INTACT JAMIE: 17 DIET ORDER: MECHANICAL SOFT, NA2GM ESTIMATED ENERGY NEEDS: ( GERIATRIC, ABW) 8969-3085 KCALS (25-30 KCALS/ KG) 63-76 G PRO (1.0-1.2 G/KG) 9022-1358 ML (25-30 ML/KG) PT PO INTAKE: ESTIMATED 50% MEALS X 3 DAYS, PER MEAL/ NUTRITION ACTIVITY RECORD. DIETARY IS CURRENTLY PROVIDING AN ESTIMATED 2300 KCALS AND 106 GM PRO. PER PT PO INTAKE, THIS IS PROVIDING AN ESTIMATED 1150 KCALS AND 53 GM PRO, TO MEET 72% KCAL AND 84% PRO NEEDS. Current Diet Order/ Nutrition Support MECHANICAL SOFT, NA2GM Pertinent Medications COLACE, MEGACE Pertinent Labs 10/05: NA 151, BUN/CR 53/1.0, GLUCOSE 129, CA 12.3, T BILI 1 .4, AST 40, ALT <3, ALH PHOS 116 Nutritional Hx/Data Height 1.65 m Height (Calculated Centimeters) 165.1 Current Weight (lbs) 83.915 kg Weight (Calculated Kilograms) 83.9 Weight (Calculated Grams) 14877.6 [place] Body Weight 125 % [place] Body Weight 148 Body Mass Index (BMI) 30.7 Weight Status Obese GI Symptoms GI Symptoms None Last BM NOT NOTED Skin Integrity/Comment: WNL, INTACT JAMIE: 17 Current %PO Fair (50-74%) Estimated Nutritional Goals BEE in Kcals: Adj wt of IBW Calories/Kcals/Kg 25-30 Kcals Calculated 0214-5566 Protein: Adj wt of IBW Protein g/k.0-1.2 Protein Calculated 63-76 Fluid: ml 8755-1220 ML (25-30 ML/KG) Nutritional Problem 1. Problem Problem ALTERED NUTRITION RELATED LABS Etiology R/T PATHOPHYSIOLOGICAL CAUSES Signs/Symptoms: AEB GLUCOSE 129, NA 151, BUN/ CR 53/1.0, CA 12.3 Malnutrition Related to Morbid Obesity Malnutrition related to morbid obesity No Intervention/Recommendation Comments 1. CONTINUE WITH MECHANICAL SOFT, NA2GM DIET ORDERED. 2. ADD NUTRITIONAL SUPPLEMENT TID (COMPLETED). Expected Outcomes/Goals Expected Outcomes/Goals 1. PO INTAKE TO MEET 75% OF NUTRITIONAL NEEDS. 2. NUTRITION RELATED LABS TO TREND WNL IN 3-5 DAYS. 3. MONITOR PO INTAKE, WT, NUTRITION RELATED LABS AND SKIN INTEGRITY. 4. F/U MODERATE RISK IN 3-5 DAYS, 10/10-10/12
--- NOTE | 2018-10-17 00:45 | Progress Notes ---
DATE: 10/16/[address] Marvin Murcia. SUBJECTIVE: Case was discussed with staff of the patient, reviewed records The patient is a 68-year-old female, who was admitted on 10/03/2018 from [facility] because of agitation. The patient with a history of bipolar disorder, Parkinson's disease. She was placed on a 5150 hold for grave disability, actively hallucinating, seeing big giant. She also has not been able to take care of her basic needs, has not been taking her medication for her Parkinson's disease and for schizoaffective disorder. The patient is unable to function. Apparently, she was not accepted back to the board and care because she is not able to take care of herself. She cannot be on her own. needs to get her to a nursing facility. She is gravely disabled and unable to carry on a conversation. She is in general calmer, sleeping better, and eating better. No side effects with the medication, no sedation, and no nausea. She is on Seroquel 50 mg twice a day, Remeron 15 mg at bedtime, Sinemet, amantadine, and megestrol. We will continue to work with the patient in group therapy, milieu therapy, and adjust the medications as needed. JOB# [id number] MARY
--- NOTE | 2018-10-17 11:27 | Internal Medicine Prog Note ---
Internal Medicine Subjective - Subjective Patient seen and examined:: with staff, chart reviewed Patient is:: awake, non-verbal, non-interactive Per staff patient has:: no adverse event, no episodes of fall, poor oral intake , tolerating meds Internal Medicine Objective - Results Result Diagrams: 10/05/18 15:00 10/05/18 15:00 Recent Labs: Laboratory Last Values WBC 14.4 Th/cmm (4.8-10.8) H 10/05/18 15:00 RBC 5.01 Mil/cmm (3.80-5.20) 10/05/18 15:00 Hgb 15.8 gm/dL (12-16) 10/05/18 15:00 Hct 46.8 % (41.0-60) 10/05/18 15:00 MCV 93.5 fl (81-100) 10/05/18 15:00 MCH 31.5 pg (27.0-31.0) H 10/05/18 15:00 MCHC Differential 33.7 pg (28.0-36.0) 10/05/18 15:00 RDW 13.2 % (11.5-20.0) 10/05/18 15:00 Plt Count 262 Th/cmm (150-400) 10/05/18 15:00 MPV 8.2 fl 10/05/18 15:00 Add Manual Diff YES 10/05/18 15:00 Band Neutrophils % 0 % (0-10) 10/05/18 15:00 Neutrophils (Manual) 88 % (40-80) H 10/05/18 15:00 Lymphocytes 6 % (20-50) L 10/05/18 15:00 Monocytes 6 % (2-10) 10/05/18 15:00 Eosinophils 0 % (0-5) 10/05/18 15:00 Basophils 0 % (0-3) 10/05/18 15:00 Sodium 151 mEq/L (136-145) H 10/05/18 15:00 Potassium 3.7 mEq/L (3.5-5.1) 10/05/18 15:00 Chloride 116 mEq/L (98-107) H 10/05/18 15:00 Carbon Dioxide 23.3 mEq/L (21.0-31.0) 10/05/18 15:00 Anion Gap 15.4 (7.0-16.0) 10/05/18 15:00 BUN 53 mg/dL (7-25) H 10/05/18 15:00 Creatinine 1.0 mg/dL (0.6-1.2) 10/05/18 15:00 Est GFR ( Amer) > 60.0 ml/min (>90) 10/05/18 15:00 Est GFR (Non-Af Amer) 58.4 ml/min 10/05/18 15:00 BUN/Creatinine Ratio 53.0 10/05/18 15:00 Glucose 129 mg/dL (70-105) H 10/05/18 15:00 Calcium 12.3 mg/dL (8.6-10.3) H 10/05/18 15:00 Total Bilirubin 1.4 mg/dL (0.3-1.0) H 10/05/18 15:00 AST 40 U/L (13-39) H 10/05/18 15:00 ALT < 3 U/L (7-52) L 10/05/18 15:00 Alkaline Phosphatase 116 U/L (34-104) H 10/05/18 15:00 Total Protein 7.9 gm/dL (6.0-8.3) 10/05/18 15:00 Albumin 4.5 gm/dL (3.7-5.3) 10/05/18 15:00 Globulin 3.4 gm/dL 10/05/18 15:00 Albumin/Globulin Ratio 1.3 (1.0-1.8) 10/05/18 15:00 Triglycerides 70 mg/dL (<150) 10/03/18 05:50 Cholesterol 205 mg/dL (<200) H 10/03/18 05:50 LDL Cholesterol Direct 163 mg/dL (75-193) 10/03/18 05:50 HDL Cholesterol 38 mg/dL (23-92) 10/03/18 05:50 TSH 0.64 uIU/ml (0.34-5.60) 10/05/18 15:00 Urine Source CATH 10/06/18 05:50 Urine Color BROWN 10/06/18 05:50 Urine Clarity HAZY (CLEAR) 10/06/18 05:50 Urine pH 6.0 (4.6 - 8.0) 10/06/18 05:50 Ur Specific [place] >= 1.030 (1.005-1.030) 10/06/18 05:50 Urine Protein 100 mg/dL (NEGATIVE) H 10/06/18 05:50 Urine Glucose (UA) NEGATIVE mg/dL (NEGATIVE) 10/06/18 05:50 Urine Ketones TRACE mg/dL (NEGATIVE) 10/06/18 05:50 Urine Blood LARGE (NEGATIVE) H 10/06/18 05:50 Urine Nitrate NEGATIVE (NEGATIVE) 10/06/18 05:50 Urine Bilirubin SMALL (NEGATIVE) H 10/06/18 05:50 Urine Urobilinogen 0.2 E.U./dL (0.2 - 1.0) 10/06/18 05:50 Ur Leukocyte Esterase TRACE (NEGATIVE) H 10/06/18 05:50 Urine RBC 25-50 /hpf (0-5) H 10/06/18 05:50 Urine WBC 6-10 /hpf (0-5) H 10/06/18 05:50 Ur Epithelial Cells OCCASIONAL /lpf (FEW) 10/06/18 05:50 Urine Bacteria FEW /hpf (NONE SEEN) 10/06/18 05:50 - Physical Exam Vitals and I&O: Vital Signs Temp 97.9 F 10/17/18 06:11 Pulse 58 10/17/18 06:11 Resp 18 10/17/18 06:11 BP 139/78 10/17/18 06:11 Pulse Ox 94 10/17/18 06:11 Intake & Output 10/16/18 10/17/18 10/17/18 18:59 06:59 18:59 Intake Total 1200 480 Balance 1200 480 Intake: Oral 1200 480 Other: # Voids 3 2 # Bowel Movements 0 1 Active Medications: Current Medications Amantadine HCl (Symmetrel) 100 mg PO BID [facility] Stop: 12/03/18 16:59 Last Admin: 10/17/18 09:09 Dose: 100 mg Carbidopa/Levodopa (Sinemet 25mg-100 Mg) 2 tab PO TID KATYA Stop: 12/02/18 08:59 Last Admin: 10/17/18 09:08 Dose: 2 tab Docusate Sodium (Colace) 250 mg PO DAILY KATYA Stop: 12/02/18 08:59 Last Admin: 10/17/18 09:08 Dose: 250 mg Megestrol Acetate (Megace) 400 mg PO BID KATYA; Protocol Stop: 12/04/18 16:59 Last Admin: 10/17/18 09:08 Dose: 400 mg Mirtazapine (Remeron) 15 mg PO HS KATYA; Protocol Stop: 12/02/18 20:59 Last Admin: 10/16/18 20:17 Dose: 15 mg Quetiapine Fumarate (Seroquel) 50 mg PO BID KATYA; Protocol Stop: 12/02/18 08:59 Last Admin: 10/17/18 09:09 Dose: 50 mg General: demented HEENT: NC/AT, PERRLA, EOMI Neck: Supple, No JVD Lungs: CTAB Cardiovascular: RRR, Normal S1, Normal S2, with murmur Abdomen: soft, thin, non-distended, positive bowel sound Extremities: excoriation, contracture Internal Medicine Assmt/Plan - Assessment Assessment: ASSESSMENT AND PLAN: 1. Parkinson's disorder. 2. Hypertension. 3. Hyperparathyroidism. 4. History of endometrial cancer. 5. Hypercholesterolemia. uti hematuria - Plan Plan: PLAN: Poor p.o. intake. We will add Ensure. We will do calorie count. We will check UA and C and S and chest x-ray if not done. We are looking for results of the lab test done from outside hospital. We will continue monitor the patient closely. start on bactrim will refer to PT tiffany rn Nutritional Asmnt/Malnutr-PDOC - Dietary Evaluation Malnutrition Findings (Please click <Entered> for more info): Nutritional Asmnt/Malnutrition Start: 10/07/18 11: 25 Text: Status: Complete Freq: Protocol: Document 10/07/18 11:26 KATHY (Rec: 10/07/18 11:31 KATHY [email or web address]) Nutritional Asmnt/Malnutrition Patient General Information Nutritional Screening Moderate Risk Diagnosis PSYCHOSIS Pertinent Medical Hx/Surgical Hx PARKINSONS, HTN, HYPERTHYROIDISM, ENDOMETRIAL CANCER Subjective Information PT IS A 68 YEAR OLD FEMALE FROM NURSING FACILITY ADMITTED ON 10/03 D/T PSYCHOSIS. ENSURE ENLIVE TID ADDED TO PTS DIET PER MD ORDER (10/05). PT IS ON MEGACE, CURRENTLY PO INTAKE IS AN ESTIMATED 50% X3 DAYS. NOTED WILLAM TEMPORAL WASTING ON H&P REPORT. HT: 55 WT: 185 LB (84.09 KG) ABW: 140 LB (63.64 KG) BMI: 30.85 (OBESE) GI: WNL, SOFT, NON-TENDER BM: NOT NOTED I/O: 120/NOT NOTED SKIN: WNL, INTACT JAMIE: 17 DIET ORDER: MECHANICAL SOFT, NA2GM ESTIMATED ENERGY NEEDS: ( GERIATRIC, ABW) [id number] KCALS (25-30 KCALS/ KG) 63-76 G PRO (1.0-1.2 G/KG) 3569-3476 ML (25-30 ML/KG) PT PO INTAKE: ESTIMATED 50% MEALS X 3 DAYS, PER MEAL/ NUTRITION ACTIVITY RECORD. DIETARY IS CURRENTLY PROVIDING AN ESTIMATED 2300 KCALS AND 106 GM PRO. PER PT PO INTAKE, THIS IS PROVIDING AN ESTIMATED 1150 KCALS AND 53 GM PRO, TO MEET 72% KCAL AND 84% PRO NEEDS. Current Diet Order/ Nutrition Support MECHANICAL SOFT, NA2GM Pertinent Medications COLACE, MEGACE Pertinent Labs 10/05: NA 151, BUN/CR 53/1.0, GLUCOSE 129, CA 12.3, T BILI 1 .4, AST 40, ALT <3, ALH PHOS 116 Nutritional Hx/Data Height 1.65 m Height (Calculated Centimeters) 165.1 Current Weight (lbs) 83.915 kg Weight (Calculated Kilograms) 83.9 Weight (Calculated Grams) 39285.6 [place] Body Weight 125 % [place] Body Weight 148 Body Mass Index (BMI) 30.7 Weight Status Obese GI Symptoms GI Symptoms None Last BM NOT NOTED Skin Integrity/Comment: WNL, INTACT JAMIE: 17 Current %PO Fair (50-74%) Estimated Nutritional Goals BEE in Kcals: Adj wt of IBW Calories/Kcals/Kg 25-30 Kcals Calculated 9737-0608 Protein: Adj wt of IBW Protein g/k.0-1.2 Protein Calculated 63-76 Fluid: ml 7270-7193 ML (25-30 ML/KG) Nutritional Problem 1. Problem Problem ALTERED NUTRITION RELATED LABS Etiology R/T PATHOPHYSIOLOGICAL CAUSES Signs/Symptoms: AEB GLUCOSE 129, NA 151, BUN/ CR 53/1.0, CA 12.3 Malnutrition Related to Morbid Obesity Malnutrition related to morbid obesity No Intervention/Recommendation Comments 1. CONTINUE WITH MECHANICAL SOFT, NA2GM DIET ORDERED. 2. ADD NUTRITIONAL SUPPLEMENT TID (COMPLETED). Expected Outcomes/Goals Expected Outcomes/Goals 1. PO INTAKE TO MEET 75% OF NUTRITIONAL NEEDS. 2. NUTRITION RELATED LABS TO TREND WNL IN 3-5 DAYS. 3. MONITOR PO INTAKE, WT, NUTRITION RELATED LABS AND SKIN INTEGRITY. 4. F/U MODERATE RISK IN 3-5 DAYS, 10/10-10/12
--- NOTE | 2018-10-17 13:56 | Progress Notes ---
DATE: 10/17/2018 Case was discussed with staff of the patient, reviewed records. The patient continues to be isolating, continues to be internally preoccupied. Continues to have poor insight. Unable to interact appropriately. Unable to make safe plan for self-care, unpredictable, impulsive, disorganized, gravely disabled, responding to internal stimuli, unable to take care of herself. No side effects of the medication, no sedation, no nausea, no extrapyramidal symptoms. I will be increasing her Seroquel dose to 75 mg twice a day and so far no side effects, no sedation or nausea, no extrapyramidal symptoms. I will continue the patient in group therapy, milieu therapy, and adjust medications as needed. [facility]# [id number] MTDD
--- NOTE | 2018-10-18 13:09 | Internal Medicine Prog Note ---
Internal Medicine Subjective - Subjective Patient seen and examined:: with staff, chart reviewed Patient is:: awake, non-verbal, non-interactive Per staff patient has:: no adverse event, no episodes of fall, poor oral intake , tolerating meds Internal Medicine Objective - Results Result Diagrams: 10/05/18 15:00 10/05/18 15:00 Recent Labs: Laboratory Last Values WBC 14.4 Th/cmm (4.8-10.8) H 10/05/18 15:00 RBC 5.01 Mil/cmm (3.80-5.20) 10/05/18 15:00 Hgb 15.8 gm/dL (12-16) 10/05/18 15:00 Hct 46.8 % (41.0-60) 10/05/18 15:00 MCV 93.5 fl (81-100) 10/05/18 15:00 MCH 31.5 pg (27.0-31.0) H 10/05/18 15:00 MCHC Differential 33.7 pg (28.0-36.0) 10/05/18 15:00 RDW 13.2 % (11.5-20.0) 10/05/18 15:00 Plt Count 262 Th/cmm (150-400) 10/05/18 15:00 MPV 8.2 fl 10/05/18 15:00 Add Manual Diff YES 10/05/18 15:00 Band Neutrophils % 0 % (0-10) 10/05/18 15:00 Neutrophils (Manual) 88 % (40-80) H 10/05/18 15:00 Lymphocytes 6 % (20-50) L 10/05/18 15:00 Monocytes 6 % (2-10) 10/05/18 15:00 Eosinophils 0 % (0-5) 10/05/18 15:00 Basophils 0 % (0-3) 10/05/18 15:00 Sodium 151 mEq/L (136-145) H 10/05/18 15:00 Potassium 3.7 mEq/L (3.5-5.1) 10/05/18 15:00 Chloride 116 mEq/L (98-107) H 10/05/18 15:00 Carbon Dioxide 23.3 mEq/L (21.0-31.0) 10/05/18 15:00 Anion Gap 15.4 (7.0-16.0) 10/05/18 15:00 BUN 53 mg/dL (7-25) H 10/05/18 15:00 Creatinine 1.0 mg/dL (0.6-1.2) 10/05/18 15:00 Est GFR ( Amer) > 60.0 ml/min (>90) 10/05/18 15:00 Est GFR (Non-Af Amer) 58.4 ml/min 10/05/18 15:00 BUN/Creatinine Ratio 53.0 10/05/18 15:00 Glucose 129 mg/dL (70-105) H 10/05/18 15:00 Calcium 12.3 mg/dL (8.6-10.3) H 10/05/18 15:00 Total Bilirubin 1.4 mg/dL (0.3-1.0) H 10/05/18 15:00 AST 40 U/L (13-39) H 10/05/18 15:00 ALT < 3 U/L (7-52) L 10/05/18 15:00 Alkaline Phosphatase 116 U/L (34-104) H 10/05/18 15:00 Total Protein 7.9 gm/dL (6.0-8.3) 10/05/18 15:00 Albumin 4.5 gm/dL (3.7-5.3) 10/05/18 15:00 Globulin 3.4 gm/dL 10/05/18 15:00 Albumin/Globulin Ratio 1.3 (1.0-1.8) 10/05/18 15:00 Triglycerides 70 mg/dL (<150) 10/03/18 05:50 Cholesterol 205 mg/dL (<200) H 10/03/18 05:50 LDL Cholesterol Direct 163 mg/dL (75-193) 10/03/18 05:50 HDL Cholesterol 38 mg/dL (23-92) 10/03/18 05:50 TSH 0.64 uIU/ml (0.34-5.60) 10/05/18 15:00 Urine Source CATH 10/06/18 05:50 Urine Color BROWN 10/06/18 05:50 Urine Clarity HAZY (CLEAR) 10/06/18 05:50 Urine pH 6.0 (4.6 - 8.0) 10/06/18 05:50 Ur Specific [place] >= 1.030 (1.005-1.030) 10/06/18 05:50 Urine Protein 100 mg/dL (NEGATIVE) H 10/06/18 05:50 Urine Glucose (UA) NEGATIVE mg/dL (NEGATIVE) 10/06/18 05:50 Urine Ketones TRACE mg/dL (NEGATIVE) 10/06/18 05:50 Urine Blood LARGE (NEGATIVE) H 10/06/18 05:50 Urine Nitrate NEGATIVE (NEGATIVE) 10/06/18 05:50 Urine Bilirubin SMALL (NEGATIVE) H 10/06/18 05:50 Urine Urobilinogen 0.2 E.U./dL (0.2 - 1.0) 10/06/18 05:50 Ur Leukocyte Esterase TRACE (NEGATIVE) H 10/06/18 05:50 Urine RBC 25-50 /hpf (0-5) H 10/06/18 05:50 Urine WBC 6-10 /hpf (0-5) H 10/06/18 05:50 Ur Epithelial Cells OCCASIONAL /lpf (FEW) 10/06/18 05:50 Urine Bacteria FEW /hpf (NONE SEEN) 10/06/18 05:50 - Physical Exam Vitals and I&O: Vital Signs Temp 98.6 F 10/18/18 06:28 Pulse 64 10/18/18 06:28 Resp 18 10/18/18 06:28 BP 158/84 10/18/18 06:28 Pulse Ox 97 10/18/18 06:28 Intake & Output 10/17/18 10/18/18 10/18/18 18:59 06:59 18:59 Intake Total 800 240 Balance 800 240 Intake: Oral 800 240 Other: # Voids 3 1 # Bowel Movements 0 Active Medications: Current Medications Amantadine HCl (Symmetrel) 100 mg PO BID [facility] Stop: 12/03/18 16:59 Last Admin: 10/18/18 08:43 Dose: 100 mg Carbidopa/Levodopa (Sinemet 25mg-100 Mg) 2 tab PO TID [facility] Stop: 12/02/18 08:59 Last Admin: 10/18/18 08:43 Dose: 2 tab Docusate Sodium (Colace) 250 mg PO DAILY [facility] Stop: 12/02/18 08:59 Last Admin: 10/18/18 08:44 Dose: 250 mg Megestrol Acetate (Megace) 400 mg PO BID [facility]; Protocol Stop: 12/04/18 16:59 Last Admin: 10/18/18 08:44 Dose: 400 mg Mirtazapine (Remeron) 15 mg PO HS [facility]; Protocol Stop: 12/02/18 20:59 Last Admin: 10/17/18 20:18 Dose: 15 mg Quetiapine Fumarate (Seroquel) 75 mg PO BID [facility]; Protocol Stop: 12/16/18 16:59 Last Admin: 10/18/18 08:44 Dose: 75 mg General: demented HEENT: NC/AT, PERRLA, EOMI Neck: Supple, No JVD Lungs: CTAB Cardiovascular: RRR, Normal S1, Normal S2, with murmur Abdomen: soft, thin, non-distended, positive bowel sound Extremities: excoriation, contracture Internal Medicine Assmt/Plan - Assessment Assessment: ASSESSMENT AND PLAN: 1. Parkinson's disorder. 2. Hypertension. 3. Hyperparathyroidism. 4. History of endometrial cancer. 5. Hypercholesterolemia. uti hematuria - Plan Plan: PLAN: Poor p.o. intake. We will add Ensure. We will do calorie count. We will check UA and C and S and chest x-ray if not done. We are looking for results of the lab test done from outside hospital. We will continue monitor the patient closely. start on bactrim will refer to PT tiffany rn Nutritional Asmnt/Malnutr-PDOC - Dietary Evaluation Malnutrition Findings (Please click <Entered> for more info): Nutritional Asmnt/Malnutrition Start: 10/07/18 11: 25 Text: Status: Complete Freq: Protocol: Document 10/07/18 11:26 KATHY (Rec: 10/07/18 11:31 KATHY [id number]) Nutritional Asmnt/Malnutrition Patient General Information Nutritional Screening Moderate Risk Diagnosis PSYCHOSIS Pertinent Medical Hx/Surgical Hx PARKINSONS, HTN, HYPERTHYROIDISM, ENDOMETRIAL CANCER Subjective Information PT IS A 68 YEAR OLD FEMALE FROM NURSING FACILITY ADMITTED ON 10/03 D/T PSYCHOSIS. ENSURE ENLIVE TID ADDED TO PTS DIET PER MD ORDER (10/05). PT IS ON MEGACE, CURRENTLY PO INTAKE IS AN ESTIMATED 50% X3 DAYS. NOTED WILLAM TEMPORAL WASTING ON H&P REPORT. HT: 55 WT: 185 LB (84.09 KG) ABW: 140 LB (63.64 KG) BMI: 30.85 (OBESE) GI: WNL, SOFT, NON-TENDER BM: NOT NOTED I/O: 120/NOT NOTED SKIN: WNL, INTACT JAMIE: 17 DIET ORDER: MECHANICAL SOFT, NA2GM ESTIMATED ENERGY NEEDS: ( GERIATRIC, ABW) 6727-6867 KCALS (25-30 KCALS/ KG) 63-76 G PRO (1.0-1.2 G/KG) 8592-8638 ML (25-30 ML/KG) PT PO INTAKE: ESTIMATED 50% MEALS X 3 DAYS, PER MEAL/ NUTRITION ACTIVITY RECORD. DIETARY IS CURRENTLY PROVIDING AN ESTIMATED 2300 KCALS AND 106 GM PRO. PER PT PO INTAKE, THIS IS PROVIDING AN ESTIMATED 1150 KCALS AND 53 GM PRO, TO MEET 72% KCAL AND 84% PRO NEEDS. Current Diet Order/ Nutrition Support MECHANICAL SOFT, NA2GM Pertinent Medications COLACE, MEGACE Pertinent Labs 10/05: NA 151, BUN/CR 53/1.0, GLUCOSE 129, CA 12.3, T BILI 1 .4, AST 40, ALT <3, ALH PHOS 116 Nutritional Hx/Data Height 1.65 m Height (Calculated Centimeters) 165.1 Current Weight (lbs) 83.915 kg Weight (Calculated Kilograms) 83.9 Weight (Calculated Grams) 70429.6 [place] Body Weight 125 % [place] Body Weight 148 Body Mass Index (BMI) 30.7 Weight Status Obese GI Symptoms GI Symptoms None Last BM NOT NOTED Skin Integrity/Comment: WNL, INTACT JAMIE: 17 Current %PO Fair (50-74%) Estimated Nutritional Goals BEE in Kcals: Adj wt of IBW Calories/Kcals/Kg 25-30 Kcals Calculated 8672-0272 Protein: Adj wt of IBW Protein g/k.0-1.2 Protein Calculated 63-76 Fluid: ml 4557-2043 ML (25-30 ML/KG) Nutritional Problem 1. Problem Problem ALTERED NUTRITION RELATED LABS Etiology R/T PATHOPHYSIOLOGICAL CAUSES Signs/Symptoms: AEB GLUCOSE 129, NA 151, BUN/ CR 53/1.0, CA 12.3 Malnutrition Related to Morbid Obesity Malnutrition related to morbid obesity No Intervention/Recommendation Comments 1. CONTINUE WITH MECHANICAL SOFT, NA2GM DIET ORDERED. 2. ADD NUTRITIONAL SUPPLEMENT TID (COMPLETED). Expected Outcomes/Goals Expected Outcomes/Goals 1. PO INTAKE TO MEET 75% OF NUTRITIONAL NEEDS. 2. NUTRITION RELATED LABS TO TREND WNL IN 3-5 DAYS. 3. MONITOR PO INTAKE, WT, NUTRITION RELATED LABS AND SKIN INTEGRITY. 4. F/U MODERATE RISK IN 3-5 DAYS, 10/10-10/12
--- NOTE | 2018-10-19 01:11 | Discharge Summary ---
DATE OF DISCHARGE: 10/18/2018 HISTORY OF PRESENT ILLNESS: This is a 68-year-old female transferred from [facility], history of agitation and bipolar disorder, Parkinson, on a hold, actively hallucinating, seeing giants, could not care for her basic needs, mostly bedbound, confused, restless, not answering all the questions. SOCIAL HISTORY: Living at a facility near [place]. PROVISIONAL DIAGNOSES: Schizoaffective, bipolar type, rule out bipolar, also Parkinson. HOSPITAL COURSE: After initial assessment, the patient was started on medications, which were adjusted and titrated. Over the course of treatment, she started to improve, walked more and more amenable to treatment. No longer with any screaming or yelling episodes, no longer talking about seeing giants, likely approaching her baseline, confused, however. Sleeping well, eating well. CONDITION UPON DISCHARGE: Improved, allowing ADLs. Mood "okay" ____ thought processes, no suicidal gestures. No HI. No overt psychosis. Better impulse control. PROVISIONAL DIAGNOSES: Schizoaffective versus bipolar disorder. MEDICAL: Please see full H and P. PROGNOSIS: The patient follows up with [facility] and remains compliant with treatment and prognosis will improve, otherwise guarded. JOB# [id number]
== END 2018-10-18 13:15 | disposition home or self-care (01) | DRG 885 ==
LOC: GERO 04:19
PROVIDERS: ADMIT Psychiatry & Neurology Psychiatry; ATTEND Psychiatry & Neurology Psychiatry
DX: F25.0 Schizoaffective disorder, bipolar type (principal); N39.0 Urinary tract infection, site not specified; G20 Parkinson's disease; I10 Essential (primary) hypertension; E21.3 Hyperparathyroidism, unspecified; E78.00 Pure hypercholesterolemia, unspecified; R31.9 Hematuria, unspecified; Z85.42 Personal history of malignant neoplasm of other parts of uterus; Z79.899 Other long term (current) drug therapy; Z88.8 Allergy status to other drugs, medicaments and biological substances
CPT/HCPCS: 36415-UA; 71045-TC; 76857-TC; 80053-TC; 80061-TC; 81001-TC; 83036-90; 84443-TC; 85007-TC; 85025-TC; 97530; X3904; Z7610